=== PATIENT | female | born 1965 | race Caucasian/White ===

== ENCOUNTER 2020-02-27 09:28 | Inpatient (IN) | payer BC ==
[2020-02-27] MEDS ORDERED: Ondansetron 4 MG/2 ML SDV IVPUSH ONE (10:17)
[2020-02-27] MEDS ORDERED: Sodium Chloride 0.9% 1,000 ML IV ONE (10:17)
[2020-02-27] MEDS ORDERED: Morphine 2 MG/ML SYRINGE IVPUSH ONE (10:20)
[2020-02-27] MEDS ORDERED: Vancomycin 1.5 GM in Sodium Chloride 0.9% 500 ML IV STA (10:20)
[2020-02-27] MEDS ORDERED: Ampicillin/Sulbactam Na 3 GM in Sodium Chloride 0.9% 100 ML IV ONE (10:25)
--- NOTE | 2020-02-27 10:32 | EDM.PDOC ---
ED HPI GENERAL MEDICAL PROBLEM - General Chief Complaint: General Stated Complaint: BACTERIAL INFECTION Time Seen by Provider: 02/27/20 09:34 Source of Information: Reports: Patient History Limitations: Reports: No Limitations - History of Present Illness INITIAL COMMENTS - FREE TEXT/NARRATIVE: HISTORY AND PHYSICAL: History of present illness: Patient is a 54-year-old female who presents to the ED today with concern of skin infection of her right groin/perineal area x 8 days. Patient states that this week she went to the walk-in clinic and was given Bactrim and states that she has been taking this for 6 days and has not had improvement of her infection and has noticed it spreading despite the antibiotics at home. Patient states that she has also had nausea and has not been able to eat due to the nausea. Patient states she had a syncopal event 3 days ago in her bathroom and hit her left eye. Patient states that she has felt dizzy and lightheaded and believes it is from not eating enough food. Patient states that she has been taking the antibiotic as prescribed to her with worsening and not improving infection. Patient denies any health history. Patient states that she took Advil at about 6 this morning for pain without relief of symptoms. Patient states she is having a hard time sitting due to the pain and discomfort of her perineal region. Patient denies fever, chills, chest pain, shortness of breath, or cough. Denies headache, neck stiff ness, change in vision. Denies vomiting, abdominal pain, diarrhea, constipation, or dysuria. Has not noted any blood in urine or stool. Review of systems: As per history of present illness and below otherwise all systems reviewed and negative. Past medical history: As per history of present illness and as reviewed below otherwise noncontributory. Surgical history: As per history of present illness and as reviewed below otherwise noncontributory. Social history: See social history for further information Family history: As per history of present illness and as reviewed below otherwise noncontributory. Physical exam: General: Patient is alert, oriented, and in no acute distress. Patient laying comfortably on exam table. HEENT: Patient does have a healing laceration of her left eyebrow approximately 2cm with surrounding ecchymosis of the eye lid. No crepitus to palpation of the skull/orbit. No Atraumatic, normocephalic, pupils equal and reactive bilaterally, negative for conjunctival pallor or scleral icterus, mucous membranes moist, TMs normal bilaterally, throat clear, neck supple, nontender, trachea midline. No drooling or trismus noted. No meningeal signs. No hot potato voice noted. Lungs: Clear to auscultation, breath sounds equal bilaterally, chest nontender. Heart: S1S2, regular rate and rhythm without overt murmur Abdomen: Soft, nondistended, nontender. Negative for masses or hepatosplenomegaly. Negative for costovertebral tenderness. Pelvis: Stable nontender. Genitourinary: Rn Bariatric at bedside Zenia Salgado. There is an open/abraded area of the skin of the right labia majora with a large area of surrounding erythema/induration that extends along the entire labia majora and up into the right inguinal area. There is a small-moderate amount of bloody discharge on patients pad that she had covering this area. Moderate pain to palpation of this area. Rectal: Deferred. Skin: Intact, warm, dry. No lesions or rashes noted. Extremities: Atraumatic, negative for cords or calf pain. Neurovascular unremarkable. Neuro: Awake, alert, oriented. Cranial nerves II through XII unremarkable. Cerebellum unremarkable. Motor and sensory unremarkable throughout. Exam nonfocal. Notes: I did call and speak to Dr. Patel, and will admit to inpatient with consult to OBGYN, Dr. Preston. Voices understanding and is agreeable to plan of care. Denies any further questions or concerns at this time. Diagnostics: EKG, CBC, CMP, UA, Lactate, Blood cultures x 2, Trop, CXR, Head ct, abd/pelvic ct w cont, COVID19 Therapeutics: NS, Zofran, Morphine, Vancomycin, Unasyn, Potassium Impression: Right labia majora cellulitis, failed outpatient Hypokalemia Transaminitis Plan: Admit to inpatient to Dr. Patel, hospitalist, with consult to Dr. Preston OBKATHERINE Definitive disposition and diagnosis as appropriate pending reevaluation and review of above. Right buttock Pain Score (Numeric/FACES): 5 - Related Data Allergies Allergy/AdvReac Type Severity Reaction Status Date / Time No Known Allergies Allergy Verified 02/27/20 09:43 Home Meds: Home Meds Lisinopril 20 mg PO DAILY 30 Days #30 tablet 03/24/18 [Rx] Past Medical History - Infectious Disease History Infectious Disease History: Reports: Chicken Pox, Measles - Past Surgical History HEENT Surgical History: Reports: Adenoidectomy, Tonsillectomy Social & Family History - Family History Family Medical History: No Pertinent Family History - Tobacco Use Tobacco Use Status *Q: Never Tobacco User - Caffeine Use Caffeine Use: Reports: Coffee - Recreational Drug Use Recreational Drug Use: No ED ROS GENERAL - Review of Systems Review Of Systems: Comprehensive ROS is negative, except as noted in HPI. ED EXAM, GENERAL - Physical Exam Exam: See Below (see dictation) Course - Vital Signs Last Recorded V/S: Last Vital Signs Temp 98.6 F 02/27/20 16:00 Pulse 80 02/27/20 16:00 Resp 18 02/27/20 16:00 BP 138/66 02/27/20 16:00 Pulse Ox 95 02/27/20 16:00 - Orders/Labs/Meds Orders: Active Orders 24 hr Category Date Time Status EKG Documentation Completion [RC] STAT Care 02/27/20 10:18 Active CULTURE BLOOD [BC] Stat Lab 02/27/20 09:50 Received CULTURE BLOOD [BC] Stat Lab 02/27/20 10:35 Received Blood Culture x2 Reflex Set [OM.PC] Stat Oth 02/27/20 10:26 Ordered Medication Orders Acetaminophen (Tylenol) 650 mg PO Q4H PRN PRN Reason: Pain (Mild 1-3)/fever Enoxaparin Sodium (Lovenox) 40 mg SUBCUT Q24H AVIS Potassium Chloride (Klor-Con M20) 40 meq PO ONETIME ONE Stop: 02/27/20 16:04 Labs: Laboratory Tests 02/27/20 02/27/20 02/27/20 Range/Units 10:35 10:35 10:35 WBC 8.90 (4.0-11.0) K/uL RBC 4.11 L (4.30-5.90) M/uL Hgb 11.8 L (12.0-16.0) g/dL Hct 35.9 L (36.0-46.0) % MCV 87.3 (80.0-98.0) fL MCH 28.7 (27.0-32.0) pg MCHC 32.9 (31.0-37.0) g/dL RDW Std Deviation 44.6 (28.0-62.0) fl RDW Coeff of John 14 (11.0-15.0) % Plt Count 265 (150-400) K/uL MPV 9.50 (7.40-12.00) fL Add Manual Diff YES Neutrophils % (Manual) 60 (48.0-80.0) % Band Neutrophils % 9 % Lymphocytes % (Manual) 18 (16.0-40.0) % Monocytes % (Manual) 10 (0.0-15.0) % Basophils % (Manual) 1 (0.0-1.5) % Metamyelocytes % 1 % Myelocytes % 1 % Nucleated RBC % 0.0 /100WBC Absolute Seg Neuts 5.3 (1.4-5.7) Band Neutrophils # 0.8 Lymphocytes # (Manual) 1.6 (0.6-2.4) Monocytes # (Manual) 0.9 H (0.0-0.8) Basophils # (Manual) 0.1 (0.0-0.1) Absolute Metamyelocyte 0.1 Absolute Myelocytes 0.1 Nucleated RBCs # 0 K/uL Toxic Granulation MODERATE Lactate 0.9 (0.20-2.00) mmol/L Sodium 136 (136-145) mmol/L Potassium 3.0 L (3.5-5.1) mmol/L Chloride 99 (98-107) mmol/L Carbon Dioxide 27.6 (21.0-32.0) mmol/L BUN 11 (7.0-18.0) mg/dL Creatinine 1.1 H (0.6-1.0) mg/dL Est Cr Clr Drug Dosing 53.46 mL/min Estimated GFR (MDRD) 51.4 ml/min Glucose 98 (74-106) mg/dL Calcium 9.3 (8.5-10.1) mg/dL Total Bilirubin 0.5 (0.2-1.0) mg/dL AST 47 H (15-37) IU/L ALT 102 H (14-63) IU/L Alkaline Phosphatase 163 H (46-116) U/L Troponin I < 0.050 (0.000-0.056) ng/mL Total Protein 7.5 (6.4-8.2) g/dL Albumin 2.8 L (3.4-5.0) g/dL Globulin 4.7 H (2.6-4.0) g/dL Albumin/Globulin Ratio 0.6 L (0.9-1.6) Urine Color Urine Appearance Urine pH (5.0-8.0) Ur Specific [place] (1.001-1.035) Urine Protein (NEGATIVE) mg/dL Urine Glucose (UA) (NEGATIVE) mg/dL Urine Ketones (NEGATIVE) mg/dL Urine Occult Blood (NEGATIVE) Urine Nitrite (NEGATIVE) Urine Bilirubin (NEGATIVE) Urine Urobilinogen (<2.0) EU/dL Ur Leukocyte Esterase (NEGATIVE) SARS-CoV-2 RNA (BENI) (NEGATIVE) 02/27/20 02/27/20 Range/Units 12:42 12:47 WBC (4.0-11.0) K/uL RBC (4.30-5.90) M/uL Hgb (12.0-16.0) g/dL Hct (36.0-46.0) % MCV (80.0-98.0) fL MCH (27.0-32.0) pg MCHC (31.0-37.0) g/dL RDW Std Deviation (28.0-62.0) fl RDW Coeff of John (11.0-15.0) % Plt Count (150-400) K/uL MPV (7.40-12.00) fL Add Manual Diff Neutrophils % (Manual) (48.0-80.0) % Band Neutrophils % % Lymphocytes % (Manual) (16.0-40.0) % Monocytes % (Manual) (0.0-15.0) % Basophils % (Manual) (0.0-1.5) % Metamyelocytes % % Myelocytes % % Nucleated RBC % /100WBC Absolute Seg Neuts (1.4-5.7) Band Neutrophils # Lymphocytes # (Manual) (0.6-2.4) Monocytes # (Manual) (0.0-0.8) Basophils # (Manual) (0.0-0.1) Absolute Metamyelocyte Absolute Myelocytes Nucleated RBCs # K/uL Toxic Granulation Lactate (0.20-2.00) mmol/L Sodium (136-145) mmol/L Potassium (3.5-5.1) mmol/L Chloride (98-107) mmol/L Carbon Dioxide (21.0-32.0) mmol/L BUN (7.0-18.0) mg/dL Creatinine (0.6-1.0) mg/dL Est Cr Clr Drug Dosing mL/min Estimated GFR (MDRD) ml/min Glucose (74-106) mg/dL Calcium (8.5-10.1) mg/dL Total Bilirubin (0.2-1.0) mg/dL AST (15-37) IU/L ALT (14-63) IU/L Alkaline Phosphatase (46-116) U/L Troponin I (0.000-0.056) ng/mL Total Protein (6.4-8.2) g/dL Albumin (3.4-5.0) g/dL Globulin (2.6-4.0) g/dL Albumin/Globulin Ratio (0.9-1.6) Urine Color YELLOW Urine Appearance CLEAR Urine pH 6.5 (5.0-8.0) Ur Specific [place] <= 1.005 (1.001-1.035) Urine Protein NEGATIVE (NEGATIVE) mg/dL Urine Glucose (UA) NEGATIVE (NEGATIVE) mg/dL Urine Ketones NEGATIVE (NEGATIVE) mg/dL Urine Occult Blood NEGATIVE (NEGATIVE) Urine Nitrite NEGATIVE (NEGATIVE) Urine Bilirubin NEGATIVE (NEGATIVE) Urine Urobilinogen 0.2 (<2.0) EU/dL Ur Leukocyte Esterase NEGATIVE (NEGATIVE) SARS-CoV-2 RNA (BENI) NEGATIVE (NEGATIVE) Meds: Medications Generic Name Dose Route Start Last Admin Trade Name Freq PRN Reason Stop Dose Admin Acetaminophen 650 mg 02/27/20 15:59 Tylenol PO Q4H PRN Pain (Mild 1-3)/fever Enoxaparin Sodium 40 mg 02/27/20 16:00 Lovenox SUBCUT Q24H AVIS Potassium Chloride 40 meq 02/27/20 16:03 Klor-Con M20 PO 02/27/20 16:04 ONETIME ONE Discontinued Medications Generic Name Dose Route Start Last Admin Trade Name Freq PRN Reason Stop Dose Admin Sodium Chloride 1,000 mls @ 999 mls/hr 02/27/20 10:17 02/27/20 10:43 Normal Saline IV 02/27/20 11:17 999 mls/hr BOLUS ONE Administration Vancomycin HCl 1.25 gm/ Sodium 250 mls @ 167 mls/hr 02/27/20 10:19 02/27/20 10:42 Chloride IV 02/27/20 11:48 Not Given ONETIME ONE Vancomycin HCl 1.5 gm/ Sodium 500 mls @ 333 mls/hr 02/27/20 10:20 02/27/20 10:42 Chloride IV 02/27/20 11:50 Not Given NOW STA Ampicillin Sodium/Sulbactam 100 mls @ 200 mls/hr 02/27/20 10:25 02/27/20 11:28 Sodium 3 gm/ Sodium Chloride IV 02/27/20 10:54 200 mls/hr ONETIME ONE Administration Vancomycin HCl 1.5 gm/ Premix 300 mls @ 199.815 mls/hr 02/27/20 10:29 02/27/20 10:45 IV 02/27/20 11:59 199.815 mls/hr NOW STA Administration Iopamidol 100 ml 02/27/20 12:21 02/27/20 12:22 Isovue Multipack-370 (76%) IVPUSH 02/27/20 12:22 100 ml ONETIME ONE Administration Morphine Sulfate 2 mg 02/27/20 10:20 02/27/20 10:45 Morphine IVPUSH 02/27/20 10:21 2 mg ONETIME ONE Administration Ondansetron HCl 4 mg 02/27/20 10:17 02/27/20 10:45 Zofran IVPUSH 02/27/20 10:18 4 mg ONETIME ONE Administration Potassium Chloride 20 meq 02/27/20 11:35 02/27/20 12:51 Klor-Con M20 PO 02/27/20 11:36 20 meq ONETIME ONE Administration Departure - Departure Time of Disposition: 13:57 Disposition: Admitted As Inpatient 64 Clinical Impression: Cellulitis of labia majora, Failure of outpatient treatment, Hypokalemia, Transaminitis - Discharge Information Sepsis Event Note (ED) - Evaluation Sepsis Screening Result: No Definite Risk - Focused Exam Vital Signs: Vital Signs Temp Pulse Resp BP Pulse Ox 02/27/20 13:43 77 128/66 93 L 02/27/20 12:43 86 146/73 H 93 L 02/27/20 11:13 73 142/68 H 95 02/27/20 09:43 97.1 F 85 16 152/83 H 96 - My Orders Last 24 Hours: My Active Orders 02/27/20 09:50 CULTURE BLOOD [BC] Stat 02/27/20 10:18 EKG Documentation Completion [RC] STAT 02/27/20 10:26 Blood Culture x2 Reflex Set [OM.PC] Stat 02/27/20 10:35 CULTURE BLOOD [BC] Stat - Assessment/Plan Last 24 Hours: My Active Orders 02/27/20 09:50 CULTURE BLOOD [BC] Stat 02/27/20 10:18 EKG Documentation Completion [RC] STAT 02/27/20 10:26 Blood Culture x2 Reflex Set [OM.PC] Stat 02/27/20 10:35 CULTURE BLOOD [BC] Stat
--- NOTE | 2020-02-27 10:38 | PCM.SN.2 ---
- Free Text/Narrative Note: 12-Lead ECG Interpretation Acquired: 10:33 AM Rhythm: Sinus rhythm Rate: 76 bpm [place]: Normal Intervals: Normal Ectopy: None RV Strain: No obvious RV strain pattern. ST Segments/T-Waves: T wave inversions in lead III, seen previously. Acute Ischemic Changes: None apparent Interpretation: No STEMI Compared to 03/24/2018, no significant change.
--- NOTE | 2020-02-27 11:21 | CR ---
INDICATION: Syncope TECHNIQUE: Chest 1 views COMPARISON: March 24, 2018 FINDINGS: Cardiovascular and mediastinum: Heart size and vasculature are normal in caliber and appearance. Lungs and pleural spaces: Lungs are clear. No sign of infiltrate or mass. No sign of pleural effusion. No pneumothorax. Bones and soft tissues: No significant findings. IMPRESSION: No acute findings and no significant changes from the prior exam. Dictated by Ike Johnson MD @ Feb 27 2020 11:17AM Signed by Dr. Ike Johnson @ Feb 27 2020 11:19AM
[2020-02-27 11:24] LABS: BLOOD UREA NITROGEN,BUN 11 mg/dL (7.0-18.0); CARBON DIOXIDE,CO2 27.6 mmol/L (21.0-32.0); CHLORIDE,CL 99 mmol/L (98-107); GLUCOSE RANDOM 98 mg/dL (74-106); SODIUM,NA 136 mmol/L (136-145)
[2020-02-27] MEDS ORDERED: Potassium Chloride 20 MEQ Tab.ER PO ONE ×2 (11:35→16:03)
[2020-02-27] MEDS ORDERED: Iopamidol 755 MG/ML 500 ML Multipack Bottle IVPUSH ONE (12:21)
--- NOTE | 2020-02-27 12:42 | CT ---
INDICATION: Syncope COMPARISON: None TECHNIQUE: CT examination of the head was performed as axial sections without intravenous contrast. Images were obtained from the vertex of the skull through the skull base. Please note that all CT scans at this facility use dose modulation, iterative reconstruction, and/or weight-based dosing when appropriate to reduce radiation dose to as low as reasonably achievable. FINDINGS: The brain shows no sign of mass lesion, mass effect, hemorrhage, or edema. The ventricles and sulci are normal in appearance for the patient`s age. The visualized portions of the orbits are normal in appearance. The osseous structures are normal in their appearance with no sign of abnormality in the skull base or calvarium. IMPRESSION: Normal unenhanced head CT. Please note that all CT scans at this facility use dose modulation, iterative reconstruction, and/or weight-based dosing when appropriate to reduce radiation dose to as low as reasonably achievable. Dictated by Neel Shrestha MD @ Feb 27 2020 12:38PM Signed by Dr. Neel Shrestha @ Feb 27 2020 12:41PM
--- NOTE | 2020-02-27 12:57 | CT ---
Indication: Perineal cellulitis versus abscess Technique: Volumetric multidetector CT images of the abdomen and pelvis were obtained after the administration of intravenous contrast. 100 cc Isovue 370 Comparison: None available. Findings: There is basilar atelectasis and/or parenchymal scarring with minimal traction bronchiectasis. The liver is mildly prominence with hepatic steatosis. The portal vein is patent. The spleen is mildly prominent without ranjana splenomegaly. There are calcified gallstones seen within the dependent gallbladder without evidence of pericholecystic fluid. There is no significant intrahepatic biliary ductal dilatation. The spleen is normal in enhancement and size. The stomach and duodenum are grossly unremarkable. The pancreas is normal in enhancement without significant atrophy. The adrenal glands are unremarkable. The kidneys demonstrate preserved corticomedullary differentiation without evidence of obstructive uropathy. There is a mild amount of stool seen throughout the colon. There is mild distal colonic diverticulosis. The appendix is unremarkable. There is no significant mesenteric, retroperitoneal, or pelvic sidewall lymph nodes. The aorta is nonaneurysmal. There is no significant atherosclerotic disease appreciated. There is demonstration of moderate and superficial soft tissue edema involving the right labia majora with extension to the perineum along the right lower quadrant abdominal superficial soft tissues. There are reactive, hyperemic lymph nodes seen in the right inguinal space and right pelvic sidewall. There is no definite extension of fluid or inflammatory changes above the pelvic floor. There is a moderate amount of non rim enhancing fluid seen throughout. There is no free fluid or free air. There is a small fat containing umbilical hernia otherwise anterior abdominal wall is intact. The lumbar vertebral body heights are grossly maintained in satisfactory alignment without evidence of displaced fracture, lytic or blastic lesion. Impression: Demonstration of fluid and inflammatory changes centered within the right labia majora and superficial subcutaneous soft tissues tracking along the right lower quadrant superficial groin soft tissues and right inguinal canal which may represent cellulitis with early abscess formation. There is no significant rim enhancement. There is no extension into the perirectal space or abdominal compartment. Please note that all CT scans at this facility use dose modulation, iterative reconstruction, and/or weight-based dosing when appropriate to reduce radiation dose to as low as reasonably achievable. Dictated by Cedric Baird MD @ Feb 27 2020 12:39PM Signed by Dr. Cedric Baird @ Feb 27 2020 12:55PM
[2020-02-27] MEDS ORDERED: Acetaminophen 325 MG Tab PO PRN (15:59)
[2020-02-27] MEDS: Enoxaparin 40 MG/0.4 ML Syringe SUBCUT SCH (16:52)
[2020-02-27] MEDS: Piperacillin/Tazobactam 3.375 GM in Sodium Chloride 0.9% 100 ML IV SCH ×2 (16:53→21:56)
[2020-02-27] MEDS ORDERED: Ondansetron 4 MG/2 ML SDV IVPUSH PRN (16:54)
--- NOTE | 2020-02-27 17:09 | PCM.HP.2 ---
<MaryRodolfo covington - Last Filed: 02/27/20 17:23> H&P History of Present Illness - General Date of Service: 02/27/20 Admit Problem/Dx: Admission Diagnosis/Problem Admission Diagnosis/Problem Cellulitis - History of Present Illness Initial Comments - Free Text/Narative: 54-year-old female admitted for cellulitis of the right pubic area, right labia majora, right perianal area. Patient states she is having a hard time sitting and walking due to her pain. Patient states that her symptoms began roughly one week prior at which time she went to a walk-in clinic for treatment. Patient was prescribed Bactrim which she has take for 6 days with no improvement of her infection. Patient has also had nausea, vomiting, headaches and fatigue for the past week. Patient has also had very poor appetite and states that she hasn't had much to eat over the past week, leading to episodes of dizziness and lightheadedness. Patient does not have any known PMH or medication allergies. Right buttock Pain Score (Numeric/FACES): 5 - Related Data Allergies/Adverse Reactions: Allergies Allergy/AdvReac Type Severity Reaction Status Date / Time No Known Allergies Allergy Verified 02/27/20 16:23 Home Medications: Home Meds Aspirin 81 mg PO DAILY 02/27/20 [History] Sulfamethoxazole/Trimethoprim [Bactrim Ds Tablet] 1 each PO BID 02/27/20 [History] Past Medical History Neurological History: Reports: Vertigo Other Neuro History: syncope Dermatologic History: Reports: Cellulitis, Other (See Below) Other Dermatologic History: cellulitis right groin and kalin and rectal area - Infectious Disease History Infectious Disease History: Reports: Chicken Pox, Measles - Past Surgical History HEENT Surgical History: Reports: Adenoidectomy, Tonsillectomy Social & Family History - Family History Family Medical History: No Pertinent Family History - Tobacco Use Tobacco Use Status *Q: Never Tobacco User Second Hand Smoke Exposure: Yes - Caffeine Use Caffeine Use: Reports: Coffee - Recreational Drug Use Recreational Drug Use: No H&P Review of Systems - Review of Systems: Review Of Systems: See Below General: Reports: Weakness, Fatigue, Decreased Appetite. Denies: Fever, Chills Pulmonary: Denies: Shortness of Breath, Wheezing Cardiovascular: Denies: Chest Pain, Palpitations, Dyspnea on Exertion Gastrointestinal: Reports: Decreased Appetite, Nausea, Vomiting. Denies: Abdominal Pain Genitourinary: Denies: Dysuria, Burning Skin: Reports: Erythema (right groin area) Neurological: Reports: Headache. Denies: Confusion, Dizziness Exam - Exam Exam: See Below - Vital Signs Vital Signs: Last Vital Signs Temp 98.6 F 02/27/20 16:00 Pulse 80 02/27/20 16:00 Resp 18 02/27/20 16:00 BP 138/66 02/27/20 16:00 Pulse Ox 95 02/27/20 16:00 Weight: 80.921 kg - Exam General: Alert, Oriented Neck: Supple Lungs: Clear to Auscultation, Normal Respiratory Effort Cardiovascular: Regular Rate, Regular Rhythm GI/Abdominal Exam: Normal Bowel Sounds, Soft, Non-Tender (Female) Exam: Other (swelling, erythema, tender and warm to touch on palpation at right labia majora and right suprapubic areas) Rectal (Female) Exam: Perirectal Abscess - Patient Data Lab Results Last 24 hrs: Laboratory Results - last 24 hr 02/27/20 02/27/20 02/27/20 Range/Units 10:35 10:35 10:35 WBC 8.90 (4.0-11.0) K/uL RBC 4.11 L (4.30-5.90) M/uL Hgb 11.8 L (12.0-16.0) g/dL Hct 35.9 L (36.0-46.0) % MCV 87.3 (80.0-98.0) fL MCH 28.7 (27.0-32.0) pg MCHC 32.9 (31.0-37.0) g/dL RDW Std Deviation 44.6 (28.0-62.0) fl RDW Coeff of John 14 (11.0-15.0) % Plt Count 265 (150-400) K/uL MPV 9.50 (7.40-12.00) fL Add Manual Diff YES Neutrophils % (Manual) 60 (48.0-80.0) % Band Neutrophils % 9 % Lymphocytes % (Manual) 18 (16.0-40.0) % Monocytes % (Manual) 10 (0.0-15.0) % Basophils % (Manual) 1 (0.0-1.5) % Metamyelocytes % 1 % Myelocytes % 1 % Nucleated RBC % 0.0 /100WBC Absolute Seg Neuts 5.3 (1.4-5.7) Band Neutrophils # 0.8 Lymphocytes # (Manual) 1.6 (0.6-2.4) Monocytes # (Manual) 0.9 H (0.0-0.8) Basophils # (Manual) 0.1 (0.0-0.1) Absolute Metamyelocyte 0.1 Absolute Myelocytes 0.1 Nucleated RBCs # 0 K/uL Toxic Granulation MODERATE Lactate 0.9 (0.20-2.00) mmol/L Sodium 136 (136-145) mmol/L Potassium 3.0 L (3.5-5.1) mmol/L Chloride 99 (98-107) mmol/L Carbon Dioxide 27.6 (21.0-32.0) mmol/L BUN 11 (7.0-18.0) mg/dL Creatinine 1.1 H (0.6-1.0) mg/dL Est Cr Clr Drug Dosing 53.46 mL/min Estimated GFR (MDRD) 51.4 ml/min Glucose 98 (74-106) mg/dL Calcium 9.3 (8.5-10.1) mg/dL Total Bilirubin 0.5 (0.2-1.0) mg/dL AST 47 H (15-37) IU/L ALT 102 H (14-63) IU/L Alkaline Phosphatase 163 H (46-116) U/L Troponin I < 0.050 (0.000-0.056) ng/mL Total Protein 7.5 (6.4-8.2) g/dL Albumin 2.8 L (3.4-5.0) g/dL Globulin 4.7 H (2.6-4.0) g/dL Albumin/Globulin Ratio 0.6 L (0.9-1.6) Urine Color Urine Appearance Urine pH (5.0-8.0) Ur Specific A[place]worth (1.001-1.035) Urine Protein (NEGATIVE) mg/dL Urine Glucose (UA) (NEGATIVE) mg/dL Urine Ketones (NEGATIVE) mg/dL Urine Occult Blood (NEGATIVE) Urine Nitrite (NEGATIVE) Urine Bilirubin (NEGATIVE) Urine Urobilinogen (<2.0) EU/dL Ur Leukocyte Esterase (NEGATIVE) SARS-CoV-2 RNA (BENI) (NEGATIVE) 02/27/20 02/27/20 Range/Units 12:42 12:47 WBC (4.0-11.0) K/uL RBC (4.30-5.90) M/uL Hgb (12.0-16.0) g/dL Hct (36.0-46.0) % MCV (80.0-98.0) fL MCH (27.0-32.0) pg MCHC (31.0-37.0) g/dL RDW Std Deviation (28.0-62.0) fl RDW Coeff of John (11.0-15.0) % Plt Count (150-400) K/uL MPV (7.40-12.00) fL Add Manual Diff Neutrophils % (Manual) (48.0-80.0) % Band Neutrophils % % Lymphocytes % (Manual) (16.0-40.0) % Monocytes % (Manual) (0.0-15.0) % Basophils % (Manual) (0.0-1.5) % Metamyelocytes % % Myelocytes % % Nucleated RBC % /100WBC Absolute Seg Neuts (1.4-5.7) Band Neutrophils # Lymphocytes # (Manual) (0.6-2.4) Monocytes # (Manual) (0.0-0.8) Basophils # (Manual) (0.0-0.1) Absolute Metamyelocyte Absolute Myelocytes Nucleated RBCs # K/uL Toxic Granulation Lactate (0.20-2.00) mmol/L Sodium (136-145) mmol/L Potassium (3.5-5.1) mmol/L Chloride (98-107) mmol/L Carbon Dioxide (21.0-32.0) mmol/L BUN (7.0-18.0) mg/dL Creatinine (0.6-1.0) mg/dL Est Cr Clr Drug Dosing mL/min Estimated GFR (MDRD) ml/min Glucose (74-106) mg/dL Calcium (8.5-10.1) mg/dL Total Bilirubin (0.2-1.0) mg/dL AST (15-37) IU/L ALT (14-63) IU/L Alkaline Phosphatase (46-116) U/L Troponin I (0.000-0.056) ng/mL Total Protein (6.4-8.2) g/dL Albumin (3.4-5.0) g/dL Globulin (2.6-4.0) g/dL Albumin/Globulin Ratio (0.9-1.6) Urine Color YELLOW Urine Appearance CLEAR Urine pH 6.5 (5.0-8.0) Ur Specific A[place]worth <= 1.005 (1.001-1.035) Urine Protein NEGATIVE (NEGATIVE) mg/dL Urine Glucose (UA) NEGATIVE (NEGATIVE) mg/dL Urine Ketones NEGATIVE (NEGATIVE) mg/dL Urine Occult Blood NEGATIVE (NEGATIVE) Urine Nitrite NEGATIVE (NEGATIVE) Urine Bilirubin NEGATIVE (NEGATIVE) Urine Urobilinogen 0.2 (<2.0) EU/dL Ur Leukocyte Esterase NEGATIVE (NEGATIVE) SARS-CoV-2 RNA (BENI) NEGATIVE (NEGATIVE) Result Diagrams: 02/27/20 10:35 02/27/20 10:35 Sepsis Event Note - Evaluation Sepsis Screening Result: No Definite Risk - Focused Exam Vital Signs: Vital Signs Temp Pulse Resp BP BP Pulse Ox 02/27/20 16:00 98.6 F 80 18 138/66 95 02/27/20 15:13 76 119/54 L 93 L 02/27/20 14:43 76 120/50 L 94 L 02/27/20 13:43 77 128/66 93 L 02/27/20 12:43 86 146/73 H 93 L 02/27/20 11:13 73 142/68 H 95 02/27/20 09:43 97.1 F 85 16 152/83 H 96 Problem List Initiated/Reviewed/Updated: Yes Orders Last 24hrs: Active Orders 24 hr Category Date Time Status Admission Status [Patient Status] [ADT] Stat ADT 02/27/20 13:47 Active EKG Documentation Completion [RC] STAT Care 02/27/20 10:18 Active Notify Provider Consults [RC] ASDIRECTED Care 02/27/20 13:56 Active Oxygen Therapy [RC] PRN Care 02/27/20 15:59 Active VTE/DVT Education [RC] PER UNIT ROUTINE Care 02/27/20 15:59 Active Vital Signs [RC] Q4H Care 02/27/20 15:59 Active Consult to Physician [CONS] Stat Cons 02/27/20 13:56 Active Soft Diet [DIET] Diet 02/27/20 Dinner Ordered Abdomen Ltd [US] Routine Exams 02/27/20 16:57 Ordered CBC WITH AUTO DIFF [HEME] AM Lab 02/28/20 05:11 Ordered CMP [COMPREHENSIVE METABOLIC PN,CMP] [CHEM] AM Lab 02/28/20 05:11 Ordered CULTURE BLOOD [BC] Stat Lab 02/27/20 09:50 Received CULTURE BLOOD [BC] Stat Lab 02/27/20 10:35 Received VANCOMYCIN TROUGH [CHEM] Routine Lab 02/29/20 10:00 Ordered Acetaminophen [TylenoL] Med 02/27/20 15:59 Active 650 mg PO Q4H PRN Enoxaparin [Lovenox] Med 02/27/20 16:00 Active 40 mg SUBCUT Q24H Lactated Ringers @ 125 MLS/HR(1,000ml) Med 02/27/20 17:00 Ordered Lactated Ringers [Ringers, Lactated] 1,000 ml IV ASDIRECTED Ondansetron [Zofran] Med 02/27/20 16:54 Ordered 4 mg IVPUSH Q8H PRN Piperacillin/Tazobactam [Piperacil-Tazobact] 3.375 gm Med 02/27/20 16:15 Active Sodium Chloride 0.9% [Normal Saline] 100 ml IV Q6H Vancomycin [Vancocin] 1 gm Med 02/27/20 23:00 Active Sodium Chloride 0.9% [Normal Saline (AdvBag)] 250 ml IV Q12H Blood Culture x2 Reflex Set [OM.PC] Stat Oth 02/27/20 10:26 Ordered Medication Orders Acetaminophen (Tylenol) 650 mg PO Q4H PRN PRN Reason: Pain (Mild 1-3)/fever Enoxaparin Sodium (Lovenox) 40 mg SUBCUT Q24H [facility] Last Admin: 02/27/20 16:52 Dose: 40 mg Documented by: DALE Piperacillin Sod/Tazobactam (Sod 3.375 gm/ Sodium Chloride) 100 mls @ 200 mls/hr IV Q6H [facility] Last Admin: 02/27/20 16:53 Dose: 200 mls/hr Documented by: DALE Vancomycin HCl 1 gm/ Sodium (Chloride) 250 mls @ 250 mls/hr IV Q12H [facility] Lactated Ringer's (Ringers, Lactated) 1,000 mls @ 125 mls/hr IV ASDIRECTED [facility] Ondansetron HCl (Zofran) 4 mg IVPUSH Q8H PRN PRN Reason: Nausea/Vomiting Assessment/Plan Comment:: Cellulitis of right groin, right perianal area, right labia majora- Vancomycin Q12, Zosyn 3gm Q6, Blood cultures pending, LR 125/HR, Zofran 4mg PRN for Nausea/Vomiting, Lovenox 40mg daily, Morphine 2mg PRN Q4 HR, [employer]ENT consult Hypokalemia- 40meq PO. Recheck AM BMP Transaminitis- US RUQ (ALT 102, AST 47, Alk Phos 163, Cholelithiasis) <Elan Adam - Last Filed: 03/01/20 12:34> H&P History of Present Illness - General Admit Problem/Dx: Admission Diagnosis/Problem Admission Diagnosis/Problem Cellulitis Exam - Vital Signs Vital Signs: Last Vital Signs Temp 36.7 C 03/01/20 09:00 Pulse 80 03/01/20 09:00 Resp 16 03/01/20 09:00 BP 134/67 03/01/20 09:00 Pulse Ox 97 03/01/20 09:00 - Patient Data Lab Results Last 24 hrs: Laboratory Results - last 24 hr 03/01/20 03/01/20 Range/Units 05:07 05:07 WBC 6.67 (4.0-11.0) K/uL RBC 3.58 L (4.30-5.90) M/uL Hgb 10.1 L (12.0-16.0) g/dL Hct 32.1 L (36.0-46.0) % MCV 89.7 (80.0-98.0) fL MCH 28.2 (27.0-32.0) pg MCHC 31.5 (31.0-37.0) g/dL RDW Std Deviation 46.7 (28.0-62.0) fl RDW Coeff of John 14 (11.0-15.0) % Plt Count 246 (150-400) K/uL MPV 9.10 (7.40-12.00) fL Add Manual Diff YES Neutrophils % (Manual) 70 (48.0-80.0) % Band Neutrophils % 12 % Lymphocytes % (Manual) 17 (16.0-40.0) % Monocytes % (Manual) 1 (0.0-15.0) % Nucleated RBC % 0.0 /100WBC Absolute Seg Neuts 4.7 (1.4-5.7) Band Neutrophils # 0.8 Lymphocytes # (Manual) 1.1 (0.6-2.4) Monocytes # (Manual) 0.1 (0.0-0.8) Nucleated RBCs # 0 K/uL Sodium 142 (136-145) mmol/L Potassium 3.4 L (3.5-5.1) mmol/L Chloride 106 (98-107) mmol/L Carbon Dioxide 26.3 (21.0-32.0) mmol/L BUN 6 L (7.0-18.0) mg/dL Creatinine 0.9 (0.6-1.0) mg/dL Est Cr Clr Drug Dosing 65.34 mL/min Estimated GFR (MDRD) > 60.0 ml/min Glucose 92 (74-106) mg/dL Calcium 8.3 L (8.5-10.1) mg/dL Result Diagrams: 03/01/20 05:07 03/01/20 05:07 Antonio Results Last 24 hrs: Microbiology 02/27/20 09:50 Aerobic Blood Culture - Preliminary Blood - Venous - Lab Draw NO GROWTH AFTER 3 DAYS Anaerobic Blood Culture - Preliminary NO GROWTH AFTER 3 DAYS 02/27/20 10:35 Aerobic Blood Culture - Preliminary Blood - Venous NO GROWTH AFTER 3 DAYS Anaerobic Blood Culture - Preliminary NO GROWTH AFTER 3 DAYS 02/29/20 16:27 Gram Stain - Final Labia - Right Wound Culture - Preliminary 02/28/20 15:10 Wound Culture - Final Labia - Right (Mrsa) Staphylococcus Aureus Skin Bette Sepsis Event Note - Focused Exam Vital Signs: Vital Signs Temp Pulse Resp BP Pulse Ox 03/01/20 09:00 36.7 C 80 16 134/67 97 03/01/20 03:55 36.8 C 68 17 161/75 H 93 L Orders Last 24hrs: Active Orders 24 hr Category Date Time Status Patient Status [ADT] Routine ADT 02/29/20 16:38 Active Regular Diet [DIET] Diet 03/01/20 Breakfast Active ANAEROBIC CULTURE Routine Lab 02/29/20 16:27 Received CULTURE WOUND [RM] Routine Lab 02/29/20 16:27 Results GRAM STAIN [RM] Routine Lab 02/29/20 16:27 Results VANCOMYCIN TROUGH [CHEM] Routine Lab 03/02/20 10:30 Ordered Potassium Chloride Med 03/01/20 09:00 Active 20 meq PO BID Resuscitation Status Routine Resus Stat 02/29/20 16:38 Ordered Medication Orders Acetaminophen (Tylenol) 650 mg PO Q4H PRN PRN Reason: Pain Last Admin: 03/01/20 04:42 Dose: 650 mg Documented by: Admin: 02/28/20 20:25 Dose: 650 mg Documented by: Admin: 02/28/20 10:35 Dose: 650 mg Documented by: FABRICIO Cosigned by: MARY Docusate Sodium (Colace) 200 mg PO DAILY [facility] Last Admin: 03/01/20 08:45 Dose: 200 mg Documented by: Admin: 02/29/20 08:41 Dose: 200 mg Documented by: Admin: 02/28/20 10:37 Dose: 200 mg Documented by: FABRICIO Cosigned by: MARY Enoxaparin Sodium (Lovenox) 40 mg SUBCUT Q24H [facility] Last Admin: 02/29/20 15:19 Dose: Not Given Documented by: Admin: 02/28/20 15:40 Dose: 40 mg Documented by: Admin: 02/27/20 16:52 Dose: 40 mg Documented by: DALE Piperacillin Sod/Tazobactam (Sod 3.375 gm/ Sodium Chloride) 100 mls @ 200 mls/hr IV Q6H [facility] Last Admin: 03/01/20 10:30 Dose: 200 mls/hr Documented by: Infusion: 03/01/20 05:14 Dose: 200 mls/hr Documented by: Admin: 03/01/20 04:44 Dose: 200 mls/hr Documented by: Infusion: 02/29/20 22:45 Dose: 200 mls/hr Documented by: Admin: 02/29/20 22:15 Dose: 200 mls/hr Documented by: Infusion: 02/29/20 15:49 Dose: 200 mls/hr Documented by: Admin: 02/29/20 15:19 Dose: 200 mls/hr Documented by: Infusion: 02/29/20 10:56 Dose: 200 mls/hr Documented by: Admin: 02/29/20 10:26 Dose: 200 mls/hr Documented by: Infusion: 02/29/20 03:50 Dose: 200 mls/hr Documented by: Admin: 02/29/20 03:20 Dose: 200 mls/hr Documented by: Infusion: 02/28/20 22:50 Dose: 200 mls/hr Documented by: Admin: 02/28/20 22:20 Dose: 200 mls/hr Documented by: Infusion: 02/28/20 16:10 Dose: 200 mls/hr Documented by: Admin: 02/28/20 15:40 Dose: 200 mls/hr Documented by: Infusion: 02/28/20 10:33 Dose: 200 mls/hr Documented by: Admin: 02/28/20 10:03 Dose: 200 mls/hr Documented by: Infusion: 02/28/20 04:11 Dose: 200 mls/hr Documented by: Admin: 02/28/20 03:41 Dose: 200 mls/hr Documented by: Infusion: 02/27/20 22:26 Dose: 200 mls/hr Documented by: Admin: 02/27/20 21:56 Dose: 200 mls/hr Documented by: Infusion: 02/27/20 17:23 Dose: 200 mls/hr Documented by: Admin: 02/27/20 16:53 Dose: 200 mls/hr Documented by: DALE Vancomycin HCl 1.25 gm/ Sodium (Chloride) 250 mls @ 250 mls/hr IV Q12H [facility] Last Admin: 03/01/20 11:11 Dose: 250 mls/hr Documented by: HORTENCIAPRSergio Infusion: 03/01/20 00:30 Dose: 250 mls/hr Documented by: [email or web address] Admin: 02/29/20 23:30 Dose: 250 mls/hr Documented by: Infusion: 02/29/20 12:19 Dose: 250 mls/hr Documented by: Admin: 02/29/20 11:19 Dose: 250 mls/hr Documented by: ÁNGEL Morphine Sulfate (Morphine) 2 mg IVPUSH Q4H PRN PRN Reason: Pain Last Admin: 02/27/20 22:04 Dose: 2 mg Documented by: BUCK Ondansetron HCl (Zofran) 4 mg IVPUSH Q8H PRN PRN Reason: Nausea/Vomiting Last Admin: 02/27/20 17:27 Dose: 4 mg Documented by: DALE Potassium Chloride (Potassium Chloride) 20 meq PO BID [facility] Last Admin: 03/01/20 08:44 Dose: 20 meq Documented by: EVITA Assessment/Plan Comment:: I performed a history and physical exam of the patient and discussed management with resident. I have reviewed the residents note and agree with documented findings and plan unless otherwise specified in my note.
[2020-02-27] MEDS ORDERED: Morphine 2 MG/ML SYRINGE IVPUSH PRN (17:18)
[2020-02-27] MEDS: Lactated Ringers 1,000 ML IV SCH (17:59)
[2020-02-27 23:15] LABS: HEMOGLOBIN A1C 5.5 %
[2020-02-28] MEDS: Lactated Ringers 1,000 ML IV SCH ×2 (03:41→16:33)
[2020-02-28] MEDS: Piperacillin/Tazobactam 3.375 GM in Sodium Chloride 0.9% 100 ML IV SCH ×4 (03:41→22:20)
[2020-02-28 05:59] LABS: BLOOD UREA NITROGEN,BUN 8 mg/dL (7.0-18.0); CARBON DIOXIDE,CO2 25.1 mmol/L (21.0-32.0); CHLORIDE,CL 106 mmol/L (98-107); GLUCOSE RANDOM 100 mg/dL (74-106); POTASSIUM,K 3.7 mmol/L (3.5-5.1); SODIUM,NA 139 mmol/L (136-145)
--- NOTE | 2020-02-28 08:52 | US ---
INDICATION: Cholelithiasis. TECHNIQUE: Ultrasound abdomen limited. Sonographic images of the right upper quadrant were obtained using yung-scale and color Doppler images. COMPARISON: CT abdomen pelvis February 27, 2020. FINDINGS: Liver: Normal in size and echotexture. No masses. No intrahepatic biliary dilatation. Gallbladder: Multiple gallbladder stones are present. No sign of gallbladder wall thickening or pericholecystic fluid. Common bile duct: 3 mm. Pancreas: Unremarkable. Right kidney: Normal in size. Normal echotexture and cortex. No masses, stones, or hydronephrosis. Vasculature: Proximal abdominal aorta and IVC are normal. IMPRESSION: Cholelithiasis without further evidence of cholecystitis. The remainder of the exam is unremarkable. Dictated by Ike Johnson MD @ Feb 28 2020 8:47AM Signed by Dr. Ike Johnson @ Feb 28 2020 8:49AM
[2020-02-28] MEDS: Acetaminophen 325 MG Tab PO PRN ×2 (10:35→20:25)
[2020-02-28] MEDS: Docusate Sodium 100 MG Cap PO SCH (10:37)
[2020-02-28] MEDS: Enoxaparin 40 MG/0.4 ML Syringe SUBCUT SCH (15:40)
--- NOTE | 2020-02-28 19:32 | PCM.PN ---
<Rodolfo Zabala - Last Filed: 02/28/20 19:27> - General Info Date of Service: 02/28/20 Admission Dx/Problem (Free Text): Patient states that she feels the same as the previous day. She has pain with movement in her groin area. Still has decreased appetitive but states nausea is well controlled with zofran. Denies fever, chills, vomiting, SOB. - Review of Systems General: Reports: Weakness. Denies: Fever, Chills Pulmonary: Denies: Shortness of Breath, Pleuritic Chest Pain, Cough Cardiovascular: Denies: Chest Pain, Palpitations, Dyspnea on Exertion Gastrointestinal: Reports: Decreased Appetite. Denies: Abdominal Pain, Diarrhea Genitourinary: Reports: Other (right groin pain). Denies: Dysuria, Frequency Neurological: Denies: Confusion, Dizziness, Headache - Patient Data Vitals - Most Recent: Last Vital Signs Temp 97.5 F 02/28/20 15:55 Pulse 74 02/28/20 15:55 Resp 22 H 02/28/20 15:55 BP 117/61 02/28/20 15:55 Pulse Ox 97 02/28/20 15:55 Weight - Most Recent: 80.921 kg I&O - Last 24 Hours: Intake & Output 02/28/20 02/28/20 02/28/20 06:59 14:59 22:59 Intake Total 2110 2050 Output Total 680 1000 Balance 1430 1050 Lab Results Last 24 Hours: Laboratory Results - last 24 hr 02/27/20 02/28/20 02/28/20 Range/Units 10:35 05:03 05:03 WBC 7.44 (4.0-11.0) K/uL RBC 3.60 L (4.30-5.90) M/uL Hgb 10.2 L (12.0-16.0) g/dL Hct 32.2 L (36.0-46.0) % MCV 89.4 (80.0-98.0) fL MCH 28.3 (27.0-32.0) pg MCHC 31.7 (31.0-37.0) g/dL RDW Std Deviation 46.3 (28.0-62.0) fl RDW Coeff of John 14 (11.0-15.0) % Plt Count 245 (150-400) K/uL MPV 9.30 (7.40-12.00) fL Add Manual Diff YES Neutrophils % (Manual) 72 (48.0-80.0) % Band Neutrophils % 7 % Lymphocytes % (Manual) 16 (16.0-40.0) % Monocytes % (Manual) 3 (0.0-15.0) % Eosinophils % (Manual) 2 (0.0-7.0) % Nucleated RBC % 0.0 /100WBC Absolute Seg Neuts 5.4 (1.4-5.7) Band Neutrophils # 0.5 Lymphocytes # (Manual) 1.2 (0.6-2.4) Monocytes # (Manual) 0.2 (0.0-0.8) Eosinophils # (Manual) 0.1 (0.0-0.7) Nucleated RBCs # 0 K/uL Sodium 139 (136-145) mmol/L Potassium 3.7 (3.5-5.1) mmol/L Chloride 106 (98-107) mmol/L Carbon Dioxide 25.1 (21.0-32.0) mmol/L BUN 8 (7.0-18.0) mg/dL Creatinine 0.9 (0.6-1.0) mg/dL Est Cr Clr Drug Dosing 65.34 mL/min Estimated GFR (MDRD) > 60.0 ml/min Glucose 100 (74-106) mg/dL Hemoglobin A1c 5.5 (4.5 - 6.2) % Calcium 8.4 L (8.5-10.1) mg/dL Total Bilirubin 0.5 (0.2-1.0) mg/dL AST 36 (15-37) IU/L ALT 75 H (14-63) IU/L Alkaline Phosphatase 132 H (46-116) U/L Total Protein 6.1 L (6.4-8.2) g/dL Albumin 2.3 L (3.4-5.0) g/dL Globulin 3.8 (2.6-4.0) g/dL Albumin/Globulin Ratio 0.6 L (0.9-1.6) Antonio Results Last 24 Hours: Microbiology 02/27/20 09:50 Aerobic Blood Culture - Preliminary Blood - Venous - Lab Draw NO GROWTH AFTER 1 DAY Anaerobic Blood Culture - Preliminary NO GROWTH AFTER 1 DAY 02/27/20 10:35 Aerobic Blood Culture - Preliminary Blood - Venous NO GROWTH AFTER 1 DAY Anaerobic Blood Culture - Preliminary NO GROWTH AFTER 1 DAY Med Orders - Current: Current Medications Acetaminophen (Tylenol) 650 mg PO Q4H PRN PRN Reason: Pain Last Admin: 02/28/20 10:35 Dose: 650 mg Documented by: Docusate Sodium (Colace) 200 mg PO DAILY [facility] Last Admin: 02/28/20 10:37 Dose: 200 mg Documented by: Enoxaparin Sodium (Lovenox) 40 mg SUBCUT Q24H [facility] Last Admin: 02/28/20 15:40 Dose: 40 mg Documented by: Piperacillin Sod/Tazobactam (Sod 3.375 gm/ Sodium Chloride) 100 mls @ 200 mls/hr IV Q6H [facility] Last Admin: 02/28/20 15:40 Dose: 200 mls/hr Documented by: Vancomycin HCl 1 gm/ Sodium (Chloride) 250 mls @ 250 mls/hr IV Q12H [facility] Last Admin: 02/28/20 10:43 Dose: 250 mls/hr Documented by: Lactated Ringer's (Ringers, Lactated) 1,000 mls @ 125 mls/hr IV ASDIRECTED [facility] Last Admin: 02/28/20 16:33 Dose: 125 mls/hr Documented by: Morphine Sulfate (Morphine) 2 mg IVPUSH Q4H PRN PRN Reason: Pain Last Admin: 02/27/20 22:04 Dose: 2 mg Documented by: Ondansetron HCl (Zofran) 4 mg IVPUSH Q8H PRN PRN Reason: Nausea/Vomiting Last Admin: 02/27/20 17:27 Dose: 4 mg Documented by: Discontinued Medications Acetaminophen (Tylenol) 650 mg PO Q4H PRN PRN Reason: Pain (Mild 1-3)/fever Sodium Chloride (Normal Saline) 1,000 mls @ 999 mls/hr IV BOLUS ONE Stop: 02/27/20 11:17 Last Admin: 02/27/20 10:43 Dose: 999 mls/hr Documented by: Vancomycin HCl 1.25 gm/ Sodium (Chloride) 250 mls @ 167 mls/hr IV ONETIME ONE Stop: 02/27/20 11:48 Last Admin: 02/27/20 10:42 Dose: Not Given Documented by: Vancomycin HCl 1.5 gm/ Sodium (Chloride) 500 mls @ 333 mls/hr IV NOW STA Stop: 02/27/20 11:50 Last Admin: 02/27/20 10:42 Dose: Not Given Documented by: Ampicillin Sodium/Sulbactam (Sodium 3 gm/ Sodium Chloride) 100 mls @ 200 mls/hr IV ONETIME ONE Stop: 02/27/20 10:54 Last Admin: 02/27/20 11:28 Dose: 200 mls/hr Documented by: Vancomycin HCl 1.5 gm/ Premix 300 mls @ 199.815 mls/hr IV NOW STA Stop: 02/27/20 11:59 Last Admin: 02/27/20 10:45 Dose: 199.815 mls/hr Documented by: Iopamidol (Isovue Multipack-370 (76%)) 100 ml IVPUSH ONETIME ONE Stop: 02/27/20 12:22 Last Admin: 02/27/20 12:22 Dose: 100 ml Documented by: Morphine Sulfate (Morphine) 2 mg IVPUSH ONETIME ONE Stop: 02/27/20 10:21 Last Admin: 02/27/20 10:45 Dose: 2 mg Documented by: Ondansetron HCl (Zofran) 4 mg IVPUSH ONETIME ONE Stop: 02/27/20 10:18 Last Admin: 02/27/20 10:45 Dose: 4 mg Documented by: Potassium Chloride (Klor-Con M20) 20 meq PO ONETIME ONE Stop: 02/27/20 11:36 Last Admin: 02/27/20 12:51 Dose: 20 meq Documented by: Potassium Chloride (Klor-Con M20) 40 meq PO ONETIME ONE Stop: 02/27/20 16:04 Last Admin: 02/27/20 16:53 Dose: 40 meq Documented by: - Exam General: Alert, Oriented Lungs: Clear to Auscultation, Normal Respiratory Effort Cardiovascular: Regular Rate, Regular Rhythm GI/Abdominal Exam: Normal Bowel Sounds, Soft, Non-Tender (Female) Exam: Other (erythema and tenderness to touch of right suprabubic region, right labia, right perianal areas. Right labia abscess draning pus. Cellulitis appears better controlled than previous day. ) Sepsis Event Note - Evaluation Sepsis Screening Result: No Definite Risk - Focused Exam Vital Signs: Vital Signs Temp Pulse Resp BP Pulse Ox 02/28/20 15:55 97.5 F 74 22 H 117/61 97 02/28/20 11:45 97.6 F 71 14 105/66 93 L 02/28/20 07:55 98.8 F 71 12 117/64 94 L - Problem List Review Problem List Initiated/Reviewed/Updated: Yes - My Orders Last 24 Hours: My Active Orders 02/27/20 23:00 Vancomycin [Vancocin] 1 gm Sodium Chloride 0.9% [Normal Saline (AdvBag)] 250 ml IV Q12H 02/28/20 15:10 CULTURE WOUND [RM] Routine 02/29/20 05:11 BASIC METABOLIC PANEL,BMP [CHEM] AM CBC WITH AUTO DIFF [HEME] AM 02/29/20 10:00 VANCOMYCIN TROUGH [CHEM] Routine - Plan Plan:: Cellulitis of right groin, right perianal area, right labia majora- Vancomycin Q12, Zosyn 3gm Q6, Blood cultures pending, Wound culture pending, LR 125/HR, Zofran 4mg PRN for Nausea/Vomiting, Lovenox 40mg daily, Morphine 2mg PRN Q4 HR, Tylenol PRN Pain, [employer] consult Transaminitis- US RUQ performed which showed cholelithiasis without cholecystitis. Patients liver enzymes are improving. <Elan Adam - Last Filed: 03/01/20 12:26> - Patient Data Vitals - Most Recent: Last Vital Signs Temp 36.7 C 03/01/20 09:00 Pulse 80 03/01/20 09:00 Resp 16 03/01/20 09:00 BP 134/67 03/01/20 09:00 Pulse Ox 97 03/01/20 09:00 I&O - Last 24 Hours: Intake & Output 02/29/20 03/01/20 03/01/20 22:59 06:59 14:59 Intake Total 1450 300 Output Total 750 1250 Balance 700 -950 Lab Results Last 24 Hours: Laboratory Results - last 24 hr 03/01/20 03/01/20 Range/Units 05:07 05:07 WBC 6.67 (4.0-11.0) K/uL RBC 3.58 L (4.30-5.90) M/uL Hgb 10.1 L (12.0-16.0) g/dL Hct 32.1 L (36.0-46.0) % MCV 89.7 (80.0-98.0) fL MCH 28.2 (27.0-32.0) pg MCHC 31.5 (31.0-37.0) g/dL RDW Std Deviation 46.7 (28.0-62.0) fl RDW Coeff of John 14 (11.0-15.0) % Plt Count 246 (150-400) K/uL MPV 9.10 (7.40-12.00) fL Add Manual Diff YES Neutrophils % (Manual) 70 (48.0-80.0) % Band Neutrophils % 12 % Lymphocytes % (Manual) 17 (16.0-40.0) % Monocytes % (Manual) 1 (0.0-15.0) % Nucleated RBC % 0.0 /100WBC Absolute Seg Neuts 4.7 (1.4-5.7) Band Neutrophils # 0.8 Lymphocytes # (Manual) 1.1 (0.6-2.4) Monocytes # (Manual) 0.1 (0.0-0.8) Nucleated RBCs # 0 K/uL Sodium 142 (136-145) mmol/L Potassium 3.4 L (3.5-5.1) mmol/L Chloride 106 (98-107) mmol/L Carbon Dioxide 26.3 (21.0-32.0) mmol/L BUN 6 L (7.0-18.0) mg/dL Creatinine 0.9 (0.6-1.0) mg/dL Est Cr Clr Drug Dosing 65.34 mL/min Estimated GFR (MDRD) > 60.0 ml/min Glucose 92 (74-106) mg/dL Calcium 8.3 L (8.5-10.1) mg/dL Antonio Results Last 24 Hours: Microbiology 02/27/20 09:50 Aerobic Blood Culture - Preliminary Blood - Venous - Lab Draw NO GROWTH AFTER 3 DAYS Anaerobic Blood Culture - Preliminary NO GROWTH AFTER 3 DAYS 02/27/20 10:35 Aerobic Blood Culture - Preliminary Blood - Venous NO GROWTH AFTER 3 DAYS Anaerobic Blood Culture - Preliminary NO GROWTH AFTER 3 DAYS 02/29/20 16:27 Gram Stain - Final Labia - Right Wound Culture - Preliminary 02/28/20 15:10 Wound Culture - Final Labia - Right (Mrsa) Staphylococcus Aureus Skin Bette Med Orders - Current: Current Medications Acetaminophen (Tylenol) 650 mg PO Q4H PRN PRN Reason: Pain Last Admin: 03/01/20 04:42 Dose: 650 mg Documented by: Docusate Sodium (Colace) 200 mg PO DAILY [facility] Last Admin: 03/01/20 08:45 Dose: 200 mg Documented by: Enoxaparin Sodium (Lovenox) 40 mg SUBCUT Q24H [facility] Last Admin: 02/29/20 15:19 Dose: Not Given Documented by: Piperacillin Sod/Tazobactam (Sod 3.375 gm/ Sodium Chloride) 100 mls @ 200 mls/hr IV Q6H [facility] Last Admin: 03/01/20 10:30 Dose: 200 mls/hr Documented by: Vancomycin HCl 1.25 gm/ Sodium (Chloride) 250 mls @ 250 mls/hr IV Q12H [facility] Last Admin: 03/01/20 11:11 Dose: 250 mls/hr Documented by: Morphine Sulfate (Morphine) 2 mg IVPUSH Q4H PRN PRN Reason: Pain Last Admin: 02/27/20 22:04 Dose: 2 mg Documented by: Ondansetron HCl (Zofran) 4 mg IVPUSH Q8H PRN PRN Reason: Nausea/Vomiting Last Admin: 02/27/20 17:27 Dose: 4 mg Documented by: Potassium Chloride (Potassium Chloride) 20 meq PO BID [facility] Last Admin: 03/01/20 08:44 Dose: 20 meq Documented by: Discontinued Medications Acetaminophen (Tylenol) 650 mg PO Q4H PRN PRN Reason: Pain (Mild 1-3)/fever Albuterol (Proventil Neb Soln) 2.5 mg NEB ONETIME PRN PRN Reason: Wheezing Atropine Sulfate (Atropine 0.1 Mg/Ml) 0.5 mg IVPUSH ASDIRECTED PRN PRN Reason: Hypo-perfusion Atropine Sulfate (Atropine 0.1 Mg/Ml) 1 mg IVPUSH ASDIRECTED PRN PRN Reason: Hypo-Perfusion Bupivacaine HCl (Sensorcaine-Mpf 0.25%) Confirm Administered Dose 10 ml .ROUTE .STK-MED ONE Stop: 02/29/20 15:43 Bupivacaine HCl (Sensorcaine-Mpf 0.5%) Confirm Administered Dose 10 ml .ROUTE .STK-MED ONE Stop: 02/29/20 15:43 Dextrose/Water (Dextrose 50% In Water) 50 ml IVPUSH ASDIRECTED PRN PRN Reason: Hypoglycemia Epinephrine HCl (Epinephrine 1:10,000) 1 mg IVPUSH ASDIRECTED PRN PRN Reason: ACLS Guidelines Fentanyl (Sublimaze) Confirm Administered Dose 100 mcg .ROUTE .STK-MED ONE Stop: 02/29/20 16:28 Fentanyl (Sublimaze) Confirm Administered Dose 100 mcg .ROUTE .STK-MED ONE Stop: 02/29/20 16:36 Fentanyl (Sublimaze) 50 mcg IVPUSH Q5M PRN PRN Reason: Pain Last Admin: 02/29/20 17:27 Dose: 50 mcg Documented by: Hydromorphone HCl (Dilaudid) 0.5 mg IVPUSH .Q5MIN PRN PRN Reason: Pain (severe 7-10) Sodium Chloride (Normal Saline) 1,000 mls @ 999 mls/hr IV BOLUS ONE Stop: 02/27/20 11:17 Last Admin: 02/27/20 10:43 Dose: 999 mls/hr Documented by: Vancomycin HCl 1.25 gm/ Sodium (Chloride) 250 mls @ 167 mls/hr IV ONETIME ONE Stop: 02/27/20 11:48 Last Admin: 02/27/20 10:42 Dose: Not Given Documented by: Vancomycin HCl 1.5 gm/ Sodium (Chloride) 500 mls @ 333 mls/hr IV NOW STA Stop: 02/27/20 11:50 Last Admin: 02/27/20 10:42 Dose: Not Given Documented by: Ampicillin Sodium/Sulbactam (Sodium 3 gm/ Sodium Chloride) 100 mls @ 200 mls/hr IV ONETIME ONE Stop: 02/27/20 10:54 Last Admin: 02/27/20 11:28 Dose: 200 mls/hr Documented by: Vancomycin HCl 1.5 gm/ Premix 300 mls @ 199.815 mls/hr IV NOW STA Stop: 02/27/20 11:59 Last Admin: 02/27/20 10:45 Dose: 199.815 mls/hr Documented by: Vancomycin HCl 1 gm/ Sodium (Chloride) 250 mls @ 250 mls/hr IV Q12H [facility] Last Admin: 02/28/20 23:14 Dose: 250 mls/hr Documented by: Lactated Ringer's (Ringers, Lactated) 1,000 mls @ 125 mls/hr IV ASDIRECTED [facility] Last Admin: 03/01/20 04:29 Dose: 125 mls/hr Documented by: Bupivacaine HCl/Epinephrine Bitart (Sensorc Mpf 0.25%-Epi [id number]) Confirm Administered Dose 30 mls @ as directed .ROUTE .STK-MED ONE Stop: 02/29/20 15:43 Acetaminophen (Ofirmev) Confirm Administered Dose 100 mls @ as directed .ROUTE .STK-MED ONE Stop: 02/29/20 16:13 Iopamidol (Isovue Multipack-370 (76%)) 100 ml IVPUSH ONETIME ONE Stop: 02/27/20 12:22 Last Admin: 02/27/20 12:22 Dose: 100 ml Documented by: Ketorolac Tromethamine (Toradol) Confirm Administered Dose 30 mg .ROUTE .STK-MED ONE Stop: 02/29/20 17:26 Lidocaine HCl (Xylocaine-Mpf 1%) Confirm Administered Dose 5 ml .ROUTE .STK-MED ONE Stop: 02/29/20 16:19 Midazolam HCl (Versed 1 Mg/Ml) Confirm Administered Dose 2 mg .ROUTE .STK-MED ONE Stop: 02/29/20 16:14 Morphine Sulfate (Morphine) 2 mg IVPUSH ONETIME ONE Stop: 02/27/20 10:21 Last Admin: 02/27/20 10:45 Dose: 2 mg Documented by: Naloxone HCl (Narcan) 0.1 mg IVPUSH ASDIRECTED PRN PRN Reason: Respiratory Depression Ondansetron HCl (Zofran) 4 mg IVPUSH ONETIME ONE Stop: 02/27/20 10:18 Last Admin: 02/27/20 10:45 Dose: 4 mg Documented by: Ondansetron HCl (Zofran) 4 mg IVPUSH ONETIME PRN PRN Reason: Nausea/Vomiting Potassium Chloride (Klor-Con M20) 20 meq PO ONETIME ONE Stop: 02/27/20 11:36 Last Admin: 02/27/20 12:51 Dose: 20 meq Documented by: Potassium Chloride (Klor-Con M20) 40 meq PO ONETIME ONE Stop: 02/27/20 16:04 Last Admin: 02/27/20 16:53 Dose: 40 meq Documented by: Propofol (Diprivan 20 Ml) Confirm Administered Dose 200 mg .ROUTE .STK-MED ONE Stop: 02/29/20 14:09 Sepsis Event Note - Focused Exam Vital Signs: Vital Signs Temp Pulse Resp BP Pulse Ox 03/01/20 09:00 36.7 C 80 16 134/67 97 03/01/20 03:55 36.8 C 68 17 161/75 H 93 L - My Orders Last 24 Hours: My Active Orders 03/01/20 Breakfast Regular Diet [DIET] 03/02/20 10:30 VANCOMYCIN TROUGH [CHEM] Routine - Plan Plan:: I have seen and evaluated the patient and agree with the residents note unless specified in my note
[2020-02-29] MEDS: Lactated Ringers 1,000 ML IV SCH ×2 (03:19→15:02)
[2020-02-29] MEDS: Piperacillin/Tazobactam 3.375 GM in Sodium Chloride 0.9% 100 ML IV SCH ×4 (03:20→22:15)
--- NOTE | 2020-02-29 03:27 | CONS ---
DATE OF CONSULTATION: 02/28/2020 DATE OF : 1965 PRIMARY CARE PHYSICIAN: None PCP HISTORY OF PRESENT ILLNESS: The patient is a pleasant 54-year-old female. Apparently, last week, Thursday, she said she popped a small superficial abscess, she said right kind of where her legs and perineum area kind of combine. It could have been an ingrown hair she said. The next day, it started getting warmer and more painful. She says she went to her primary care provider on Thursday and was started on Bactrim. She has been on Bactrim for the past 5 to 6 days. She says that she continued to have spread of the cellulitis up into her groin area, and it was becoming tender. She also had some nausea and vomiting and some dizziness, although she thinks the nausea, vomiting, and dizziness were side effects of her antibiotic. She denies any fevers or chills. She denies any changes in her bowel habit, although she said she did have a loss of appetite. Since the cellulitis was not improving on the outpatient antibiotics, she went to the ER and was admitted yesterday to the Hospital Service. They did consult because of an abscess of the labia and cellulitis extending into the perineum and into the right groin. General Surgery was consulted for evaluation of the cellulitis. The patient says she is feeling much better since being in the hospital. The erythema stopped spreading and maybe even getting less, and erythema she says definitely is less intensity. White cell count is 7.44, although she does have a bandemia of 7, down from 9 yesterday. She had a CT scan done, which did show edema of fluid and potentially early abscess or phlegmon of the subcutaneous tissue tracking from the labia majora on the right side into the superficial soft tissue of the groin. PAST MEDICAL HISTORY: The patient denies any. HOME MEDICATION: The patient denies any regular ones, but she was on Bactrim for this infection. ALLERGIES: No known drug allergies. PAST SURGICAL HISTORY: 1. Ankle surgery. 2. Appendectomy. 3. Tonsillectomy. FAMILY HISTORY: 1. Father had heart disease. 2. Grandfather with colon cancer. 3. Grandmother with intestinal cancer. 4. Sister with leukemia. SOCIAL HISTORY: The patient denies any tobacco use and denies any drug use. Only occasional alcohol use. REVIEW OF SYSTEMS: A complete 12+ review of systems was done and was negative, except for the HPI. PHYSICAL EXAMINATION: GENERAL: The patient is lying comfortably in her hospital bed. She is alert, oriented, and in no acute distress. VITAL SIGNS: Temperature is 97.6, pulse is 71, blood pressure is 105/66, and saturating 93% on room air. ABDOMEN: Soft, nontender, and nondistended. SKIN: I did examine her perineum and right groin with a nurse incoming freight clerk in the room. The base of her right labia is where the infection likely started. This is draining some purulent material. There is surrounding edema and erythema. This does spread up, mainly up into the right groin area. The right groin area does have erythema. It is indurated but I do not feel any fluctuance yet. The erythema is blanching, and the area is tender. IMAGING: As per HPI. LABORATORY: White cell count is 7.44, hemoglobin is 10.2, and platelet count is 245; bandemia at 7. Sodium is 139, potassium is 3.7, chloride is 106, bicarb is 25.1, BUN is 8, creatinine is 0.9, and glucose is 100. Cultures: So far, blood cultures preliminarily have showed no growth after 1 day. ASSESSMENT AND PLAN: This is a 54-year-old female, who appears to have had an ingrown hair or a boil at the base of her labia that developed into an abscess that has spread as a cellulitis into the right groin. It is now draining. Obstetrics/Gynecology has been consulted for this. As far as the cellulitis extending up into the right groin area, currently, this mainly feels edematous and indurated. I do not feel an actual abscess cavity yet, and none was seen on the CT scan. I did go over with the patient that this could convalesce into an abscess that potentially might be drained. I went over that Surgery will continue to follow. She should continue her antibiotic, as this seems to be improving her condition. All of the patient's questions were answered. I talked to the Medicine team and her nurse. SABRINA / NASEEM /[id number] [facility]
[2020-02-29 05:14] LABS: BLOOD UREA NITROGEN,BUN 6 mg/dL (7.0-18.0); CARBON DIOXIDE,CO2 27.1 mmol/L (21.0-32.0); CHLORIDE,CL 107 mmol/L (98-107); GLUCOSE RANDOM 100 mg/dL (74-106); POTASSIUM,K 3.6 mmol/L (3.5-5.1); SODIUM,NA 141 mmol/L (136-145)
[2020-02-29] MEDS: Docusate Sodium 100 MG Cap PO SCH (08:41)
--- NOTE | 2020-02-29 09:50 | PCM.PREANE ---
Preanesthetic Assessment - Anesthesia/Transfusion/Family Hx Anesthesia History: Prior Anesthesia Reaction Other Type of Anesthesia Reaction Comment: low BP after BTL Family History of Anesthesia Reaction: No Transfusion History: Prior Transfusion Without Reaction Intubation History: Unknown - Review of Systems General: No Symptoms Pulmonary: No Symptoms Cardiovascular: No Symptoms Gastrointestinal: No Symptoms Neurological: No Symptoms Other: Reports: None - Physical Assessment Vital Signs: Last Vital Signs Temp 36.8 C 02/29/20 07:45 Pulse 71 02/29/20 07:45 Resp 18 02/29/20 07:45 BP 134/66 02/29/20 07:45 Pulse Ox 92 L 02/29/20 07:45 Height: 5 ft 6 in Weight: 80.921 kg ASA Class: 2E Mental Status: Alert & Oriented x3 Airway Class: Mallampati = 1 Dentition: Reports: Normal Dentition Thyro-Mental Finger Breadths: 3 Mouth Opening Finger Breadths: 3 ROM/Head Extension: Full Lungs: Clear to Auscultation, Normal Respiratory Effort Cardiovascular: Regular Rate, Regular Rhythm - Lab Values: Laboratory Last Values WBC 6.54 K/uL (4.0-11.0) 02/29/20 04:52 RBC 3.65 M/uL (4.30-5.90) L 02/29/20 04:52 Hgb 10.3 g/dL (12.0-16.0) L 02/29/20 04:52 Hct 32.6 % (36.0-46.0) L 02/29/20 04:52 MCV 89.3 fL (80.0-98.0) 02/29/20 04:52 MCH 28.2 pg (27.0-32.0) 02/29/20 04:52 MCHC 31.6 g/dL (31.0-37.0) 02/29/20 04:52 RDW Std Deviation 46.0 fl (28.0-62.0) 02/29/20 04:52 RDW Coeff of John 14 % (11.0-15.0) 02/29/20 04:52 Plt Count 227 K/uL (150-400) 02/29/20 04:52 MPV 9.10 fL (7.40-12.00) 02/29/20 04:52 Add Manual Diff YES 02/29/20 04:52 Neutrophils % (Manual) 67 % (48.0-80.0) 02/29/20 04:52 Band Neutrophils % 10 % 02/29/20 04:52 Lymphocytes % (Manual) 14 % (16.0-40.0) L 02/29/20 04:52 Monocytes % (Manual) 6 % (0.0-15.0) 02/29/20 04:52 Eosinophils % (Manual) 3 % (0.0-7.0) 02/29/20 04:52 Basophils % (Manual) 1 % (0.0-1.5) 02/27/20 10:35 Metamyelocytes % 1 % 02/27/20 10:35 Myelocytes % 1 % 02/27/20 10:35 Nucleated RBC % 0.0 /100WBC 02/29/20 04:52 Absolute Seg Neuts 4.4 (1.4-5.7) 02/29/20 04:52 Band Neutrophils # 0.7 02/29/20 04:52 Lymphocytes # (Manual) 0.9 (0.6-2.4) 02/29/20 04:52 Monocytes # (Manual) 0.4 (0.0-0.8) 02/29/20 04:52 Eosinophils # (Manual) 0.2 (0.0-0.7) 02/29/20 04:52 Basophils # (Manual) 0.1 (0.0-0.1) 02/27/20 10:35 Absolute Metamyelocyte 0.1 02/27/20 10:35 Absolute Myelocytes 0.1 02/27/20 10:35 Nucleated RBCs # 0 K/uL 02/29/20 04:52 Toxic Granulation MODERATE 02/27/20 10:35 Lactate 0.9 mmol/L (0.20-2.00) 02/27/20 10:35 Sodium 141 mmol/L (136-145) 02/29/20 04:52 Potassium 3.6 mmol/L (3.5-5.1) 02/29/20 04:52 Chloride 107 mmol/L (98-107) 02/29/20 04:52 Carbon Dioxide 27.1 mmol/L (21.0-32.0) 02/29/20 04:52 BUN 6 mg/dL (7.0-18.0) L 02/29/20 04:52 Creatinine 0.8 mg/dL (0.6-1.0) 02/29/20 04:52 Est Cr Clr Drug Dosing 73.51 mL/min 02/29/20 04:52 Estimated GFR (MDRD) > 60.0 ml/min 02/29/20 04:52 Glucose 100 mg/dL (74-106) 02/29/20 04:52 Hemoglobin A1c 5.5 % (4.5-6.2) 02/27/20 10:35 Calcium 8.0 mg/dL (8.5-10.1) L 02/29/20 04:52 Total Bilirubin 0.5 mg/dL (0.2-1.0) 02/28/20 05:03 AST 36 IU/L (15-37) 02/28/20 05:03 ALT 75 IU/L (14-63) H 02/28/20 05:03 Alkaline Phosphatase 132 U/L (46-116) H 02/28/20 05:03 Troponin I < 0.050 ng/mL (0.000-0.056) 02/27/20 10:35 Total Protein 6.1 g/dL (6.4-8.2) L 02/28/20 05:03 Albumin 2.3 g/dL (3.4-5.0) L 02/28/20 05:03 Globulin 3.8 g/dL (2.6-4.0) 02/28/20 05:03 Albumin/Globulin Ratio 0.6 (0.9-1.6) L 02/28/20 05:03 Urine Color YELLOW 02/27/20 12:47 Urine Appearance CLEAR 02/27/20 12:47 Urine pH 6.5 (5.0-8.0) 02/27/20 12:47 Ur Specific [place] <= 1.005 (1.001-1.035) 02/27/20 12:47 Urine Protein NEGATIVE mg/dL (NEGATIVE) 02/27/20 12:47 Urine Glucose (UA) NEGATIVE mg/dL (NEGATIVE) 02/27/20 12:47 Urine Ketones NEGATIVE mg/dL (NEGATIVE) 02/27/20 12:47 Urine Occult Blood NEGATIVE (NEGATIVE) 02/27/20 12:47 Urine Nitrite NEGATIVE (NEGATIVE) 02/27/20 12:47 Urine Bilirubin NEGATIVE (NEGATIVE) 02/27/20 12:47 Urine Urobilinogen 0.2 EU/dL (<2.0) 02/27/20 12:47 Ur Leukocyte Esterase NEGATIVE (NEGATIVE) 02/27/20 12:47 SARS-CoV-2 RNA (BENI) NEGATIVE (NEGATIVE) 02/27/20 12:42 - Allergies Allergies/Adverse Reactions: Allergies Allergy/AdvReac Type Severity Reaction Status Date / Time No Known Allergies Allergy Verified 02/27/20 16:23 - Blood Blood Available: No - Anesthesia Plan Pre-Op Medication Ordered: None - Acknowledgements Anesthesia Type Planned: General Anesthesia Pt an Appropriate Candidate for the Planned Anesthesia: Yes Alternatives and Risks of Anesthesia Discussed w Pt/Guardian: Yes Pt/Guardian Understands and Agrees with Anesthesia Plan: Yes PreAnesthesia Questionnaire Neurological History: Reports: Vertigo Other Neuro History: syncope a week ago, small bruise on the left side of the face Dermatologic History: Reports: Cellulitis, Other (See Below) Other Dermatologic History: cellulitis right groin and kalin and rectal area - Infectious Disease History Infectious Disease History: Reports: Chicken Pox, Measles - Past Surgical History HEENT Surgical History: Reports: Adenoidectomy, Tonsillectomy Female Surgical History: Reports: Cervical Conization, Tubal Ligation, Other (See Below) (urethral dilatation x2 as child) - SUBSTANCE USE Tobacco Use Status *Q: Never Tobacco User Second Hand Smoke Exposure: Yes Recreational Drug Use History: No - HOME MEDS Home Medications: Home Meds Aspirin 81 mg PO DAILY 02/27/20 [History] Sulfamethoxazole/Trimethoprim [Bactrim Ds Tablet] 1 each PO BID 02/27/20 [History] - CURRENT (IN HOUSE) MEDS Current Meds: Current Medications Acetaminophen (Tylenol) 650 mg PO Q4H PRN PRN Reason: Pain Last Admin: 02/28/20 20:25 Dose: 650 mg Documented by: Docusate Sodium (Colace) 200 mg PO DAILY [facility] Last Admin: 02/29/20 08:41 Dose: 200 mg Documented by: Enoxaparin Sodium (Lovenox) 40 mg SUBCUT Q24H [facility] Last Admin: 02/28/20 15:40 Dose: 40 mg Documented by: Piperacillin Sod/Tazobactam (Sod 3.375 gm/ Sodium Chloride) 100 mls @ 200 mls/hr IV Q6H [facility] Last Admin: 02/29/20 03:20 Dose: 200 mls/hr Documented by: Vancomycin HCl 1 gm/ Sodium (Chloride) 250 mls @ 250 mls/hr IV Q12H [facility] Last Admin: 02/28/20 23:14 Dose: 250 mls/hr Documented by: Lactated Ringer's (Ringers, Lactated) 1,000 mls @ 125 mls/hr IV ASDIRECTED [facility] Last Admin: 02/29/20 03:19 Dose: 125 mls/hr Documented by: Morphine Sulfate (Morphine) 2 mg IVPUSH Q4H PRN PRN Reason: Pain Last Admin: 02/27/20 22:04 Dose: 2 mg Documented by: Ondansetron HCl (Zofran) 4 mg IVPUSH Q8H PRN PRN Reason: Nausea/Vomiting Last Admin: 02/27/20 17:27 Dose: 4 mg Documented by: Discontinued Medications Acetaminophen (Tylenol) 650 mg PO Q4H PRN PRN Reason: Pain (Mild 1-3)/fever Sodium Chloride (Normal Saline) 1,000 mls @ 999 mls/hr IV BOLUS ONE Stop: 02/27/20 11:17 Last Admin: 02/27/20 10:43 Dose: 999 mls/hr Documented by: Vancomycin HCl 1.25 gm/ Sodium (Chloride) 250 mls @ 167 mls/hr IV ONETIME ONE Stop: 02/27/20 11:48 Last Admin: 02/27/20 10:42 Dose: Not Given Documented by: Vancomycin HCl 1.5 gm/ Sodium (Chloride) 500 mls @ 333 mls/hr IV NOW STA Stop: 02/27/20 11:50 Last Admin: 02/27/20 10:42 Dose: Not Given Documented by: Ampicillin Sodium/Sulbactam (Sodium 3 gm/ Sodium Chloride) 100 mls @ 200 mls/hr IV ONETIME ONE Stop: 02/27/20 10:54 Last Admin: 02/27/20 11:28 Dose: 200 mls/hr Documented by: Vancomycin HCl 1.5 gm/ Premix 300 mls @ 199.815 mls/hr IV NOW STA Stop: 02/27/20 11:59 Last Admin: 02/27/20 10:45 Dose: 199.815 mls/hr Documented by: Iopamidol (Isovue Multipack-370 (76%)) 100 ml IVPUSH ONETIME ONE Stop: 02/27/20 12:22 Last Admin: 02/27/20 12:22 Dose: 100 ml Documented by: Morphine Sulfate (Morphine) 2 mg IVPUSH ONETIME ONE Stop: 02/27/20 10:21 Last Admin: 02/27/20 10:45 Dose: 2 mg Documented by: Ondansetron HCl (Zofran) 4 mg IVPUSH ONETIME ONE Stop: 02/27/20 10:18 Last Admin: 02/27/20 10:45 Dose: 4 mg Documented by: Potassium Chloride (Klor-Con M20) 20 meq PO ONETIME ONE Stop: 02/27/20 11:36 Last Admin: 02/27/20 12:51 Dose: 20 meq Documented by: Potassium Chloride (Klor-Con M20) 40 meq PO ONETIME ONE Stop: 02/27/20 16:04 Last Admin: 02/27/20 16:53 Dose: 40 meq Documented by:
[2020-02-29] MEDS ORDERED: Propofol 200 MG/20 ML SDV ONE (14:08)
[2020-02-29] MEDS: Enoxaparin 40 MG/0.4 ML Syringe SUBCUT SCH (15:19)
--- NOTE | 2020-02-29 15:30 | PN ---
SUBJECTIVE: The patient said she feels somewhat the same as yesterday. She feels the redness in her groin has decreased. She is still having drainage from her labia. RELIGION DEPARTMENT CHAIR did come and do a consult this morning. They want to go and drain the abscess in the labia later today. OBJECTIVE: GENERAL: The patient is sitting comfortably in her hospital bed. She is alert and oriented, in no acute distress. VITAL SIGNS: Temperature is 96.9, pulse is 72, blood pressure is 131/59, saturating 96% on room air. SKIN: Still has some blanching erythema at her right groin area. This does have some induration, not really fluctuant. It is tender to palpation. This erythema and redness does go down into her right labia. This continues to drain. LABS: White cell count is 6.54, hemoglobin 10.3, platelet count is 227, 10% bands. Blood cultures are still no growth after 2 days. Preliminary wound culture shows coagulase-positive Staphylococcus. ASSESSMENT AND PLAN: This is a pleasant 54-year-old female with right kalin-labial abscess. CT scan done several days ago did show maybe early abscess in the soft tissue in the right groin or phlegmon. The erythema seems to be decreasing with antibiotics. The patient does have drainage from her labia. RELIGION DEPARTMENT CHAIR has seen and is taking her back to drain the abscess. I did go over with the patient that hopefully this will help with the cellulitis and induration in the right groin. I did go over with the patient that she could develop a subcutaneous abscess in the groin also that may be drained in the future. The patient understands. All the questions were answered. Did discuss with the hospital team. SABRINA GUSMAN /[id number] RICHARD
[2020-02-29] MEDS ORDERED: Bupivacaine 0.25% 10 ML SDV ONE (15:42)
[2020-02-29] MEDS ORDERED: Bupivacaine 0.5% 10 ML SDV ONE (15:42)
[2020-02-29] MEDS ORDERED: Bupivacaine 25%/EPINEPHrine/PF 30 ML ONE (15:42)
[2020-02-29] MEDS ORDERED: Midazolam 1 MG/ML 2 ML SDV ONE (16:13)
[2020-02-29] MEDS ORDERED: fentaNYL 100 MCG/2 ML SDV ONE ×2 (16:27→16:35)
--- NOTE | 2020-02-29 16:40 | PCM.OPNOTE ---
- General Post-Op/Procedure Note Date of Surgery/Procedure: 02/29/20 Operative Procedure(s): I&D R. labial absess Post-Op Diagnosis: Same Anesthesia Technique: General LMA Primary Surgeon: Chucho Preston EBL in mLs: 100 Complications: None Condition: Stable Free Text/Narrative:: Intake & Output 02/29/20 02/29/20 02/29/20 06:59 14:59 22:59 Intake Total 925 Output Total 1450 Balance -525
[2020-02-29] MEDS ORDERED: Naloxone 0.4 MG/ML Syringe IVPUSH PRN (16:58)
[2020-02-29] MEDS ORDERED: Ondansetron 4 MG/2 ML SDV IVPUSH PRN (16:58)
[2020-02-29] MEDS ORDERED: 50% Dextrose in Water 50 ML Syringe IVPUSH PRN (16:58)
[2020-02-29] MEDS ORDERED: HYDROmorphone 2 MG/ML Syringe IVPUSH PRN (16:58)
[2020-02-29] MEDS ORDERED: Albuterol 0.083% 2.5 MG/3 ML Neb Soln NEB PRN (16:58)
[2020-02-29] MEDS ORDERED: Atropine 0.1 MG/ML 10 ML Syringe IVPUSH PRN ×2 (16:58)
[2020-02-29] MEDS ORDERED: EPINEPHrine 1:10,000 1 MG/10 ML Syringe IVPUSH PRN (16:58)
--- NOTE | 2020-02-29 16:58 | PCM.PN ---
<Rodolfo Zabala - Last Filed: 02/29/20 16:48> - General Info Date of Service: 02/29/20 Subjective Update: Patient states less nausea and has a better appetite. Patient set to have I&D performed by Dr Preston in the afternoon. Denies fever, chills, nausea, vomiting. States her right sided groin pain is the same as previous day. - Review of Systems General: Denies: Fever, Weakness Pulmonary: Denies: Shortness of Breath, Pleuritic Chest Pain Cardiovascular: Denies: Chest Pain, Palpitations Gastrointestinal: Reports: Decreased Appetite. Denies: Abdominal Pain, Diarrhea, Nausea, Vomiting Genitourinary: Denies: Dysuria Neurological: Denies: Confusion, Dizziness - Patient Data Vitals - Most Recent: Last Vital Signs Temp 97.3 F 02/29/20 16:00 Pulse 76 02/29/20 16:00 Resp 22 H 02/29/20 16:00 BP 145/73 H 02/29/20 16:00 Pulse Ox 93 L 02/29/20 16:00 Weight - Most Recent: 80.921 kg I&O - Last 24 Hours: Intake & Output 02/29/20 02/29/20 02/29/20 06:59 14:59 22:59 Intake Total 925 Output Total 1450 Balance -525 Lab Results Last 24 Hours: Laboratory Results - last 24 hr 02/29/20 02/29/20 02/29/20 Range/Units 04:52 04:52 09:55 WBC 6.54 (4.0-11.0) K/uL RBC 3.65 L (4.30-5.90) M/uL Hgb 10.3 L (12.0-16.0) g/dL Hct 32.6 L (36.0-46.0) % MCV 89.3 (80.0-98.0) fL MCH 28.2 (27.0-32.0) pg MCHC 31.6 (31.0-37.0) g/dL RDW Std Deviation 46.0 (28.0-62.0) fl RDW Coeff of John 14 (11.0-15.0) % Plt Count 227 (150-400) K/uL MPV 9.10 (7.40-12.00) fL Add Manual Diff YES Neutrophils % (Manual) 67 (48.0-80.0) % Band Neutrophils % 10 % Lymphocytes % (Manual) 14 L (16.0-40.0) % Monocytes % (Manual) 6 (0.0-15.0) % Eosinophils % (Manual) 3 (0.0-7.0) % Nucleated RBC % 0.0 /100WBC Absolute Seg Neuts 4.4 (1.4-5.7) Band Neutrophils # 0.7 Lymphocytes # (Manual) 0.9 (0.6-2.4) Monocytes # (Manual) 0.4 (0.0-0.8) Eosinophils # (Manual) 0.2 (0.0-0.7) Nucleated RBCs # 0 K/uL Sodium 141 (136-145) mmol/L Potassium 3.6 (3.5-5.1) mmol/L Chloride 107 (98-107) mmol/L Carbon Dioxide 27.1 (21.0-32.0) mmol/L BUN 6 L (7.0-18.0) mg/dL Creatinine 0.8 (0.6-1.0) mg/dL Est Cr Clr Drug Dosing 73.51 mL/min Estimated GFR (MDRD) > 60.0 ml/min Glucose 100 (74-106) mg/dL Calcium 8.0 L (8.5-10.1) mg/dL Vancomycin Trough 6.5 (5.0-10.0) ug/mL Antonio Results Last 24 Hours: Microbiology 02/27/20 09:50 Aerobic Blood Culture - Preliminary Blood - Venous - Lab Draw NO GROWTH AFTER 2 DAYS Anaerobic Blood Culture - Preliminary NO GROWTH AFTER 2 DAYS 02/27/20 10:35 Aerobic Blood Culture - Preliminary Blood - Venous NO GROWTH AFTER 2 DAYS Anaerobic Blood Culture - Preliminary NO GROWTH AFTER 2 DAYS 02/28/20 15:10 Wound Culture - Preliminary Labia - Right Med Orders - Current: Current Medications Acetaminophen (Tylenol) 650 mg PO Q4H PRN PRN Reason: Pain Last Admin: 02/28/20 20:25 Dose: 650 mg Documented by: Docusate Sodium (Colace) 200 mg PO DAILY [facility] Last Admin: 02/29/20 08:41 Dose: 200 mg Documented by: Enoxaparin Sodium (Lovenox) 40 mg SUBCUT Q24H [facility] Last Admin: 02/29/20 15:19 Dose: Not Given Documented by: Piperacillin Sod/Tazobactam (Sod 3.375 gm/ Sodium Chloride) 100 mls @ 200 mls/hr IV Q6H [facility] Last Admin: 02/29/20 15:19 Dose: 200 mls/hr Documented by: Lactated Ringer's (Ringers, Lactated) 1,000 mls @ 125 mls/hr IV ASDIRECTED [facility] Last Admin: 02/29/20 15:02 Dose: 125 mls/hr Documented by: Vancomycin HCl 1.25 gm/ Sodium (Chloride) 250 mls @ 250 mls/hr IV Q12H [facility] Last Admin: 02/29/20 11:19 Dose: 250 mls/hr Documented by: Morphine Sulfate (Morphine) 2 mg IVPUSH Q4H PRN PRN Reason: Pain Last Admin: 02/27/20 22:04 Dose: 2 mg Documented by: Ondansetron HCl (Zofran) 4 mg IVPUSH Q8H PRN PRN Reason: Nausea/Vomiting Last Admin: 02/27/20 17:27 Dose: 4 mg Documented by: Discontinued Medications Acetaminophen (Tylenol) 650 mg PO Q4H PRN PRN Reason: Pain (Mild 1-3)/fever Bupivacaine HCl (Sensorcaine-Mpf 0.25%) Confirm Administered Dose 10 ml .ROUTE .STK-MED ONE Stop: 02/29/20 15:43 Bupivacaine HCl (Sensorcaine-Mpf 0.5%) Confirm Administered Dose 10 ml .ROUTE .STK-MED ONE Stop: 02/29/20 15:43 Fentanyl (Sublimaze) Confirm Administered Dose 100 mcg .ROUTE .STK-MED ONE Stop: 02/29/20 16:28 Fentanyl (Sublimaze) Confirm Administered Dose 100 mcg .ROUTE .STK-MED ONE Stop: 02/29/20 16:36 Sodium Chloride (Normal Saline) 1,000 mls @ 999 mls/hr IV BOLUS ONE Stop: 02/27/20 11:17 Last Admin: 02/27/20 10:43 Dose: 999 mls/hr Documented by: Vancomycin HCl 1.25 gm/ Sodium (Chloride) 250 mls @ 167 mls/hr IV ONETIME ONE Stop: 02/27/20 11:48 Last Admin: 02/27/20 10:42 Dose: Not Given Documented by: Vancomycin HCl 1.5 gm/ Sodium (Chloride) 500 mls @ 333 mls/hr IV NOW STA Stop: 02/27/20 11:50 Last Admin: 02/27/20 10:42 Dose: Not Given Documented by: Ampicillin Sodium/Sulbactam (Sodium 3 gm/ Sodium Chloride) 100 mls @ 200 mls/hr IV ONETIME ONE Stop: 02/27/20 10:54 Last Admin: 02/27/20 11:28 Dose: 200 mls/hr Documented by: Vancomycin HCl 1.5 gm/ Premix 300 mls @ 199.815 mls/hr IV NOW STA Stop: 02/27/20 11:59 Last Admin: 02/27/20 10:45 Dose: 199.815 mls/hr Documented by: Vancomycin HCl 1 gm/ Sodium (Chloride) 250 mls @ 250 mls/hr IV Q12H [facility] Last Admin: 02/28/20 23:14 Dose: 250 mls/hr Documented by: Bupivacaine HCl/Epinephrine Bitart (Sensorc Mpf 0.25%-Epi [id number]) Confirm Administered Dose 30 mls @ as directed .ROUTE .STK-MED ONE Stop: 02/29/20 15:43 Acetaminophen (Ofirmev) Confirm Administered Dose 100 mls @ as directed .ROUTE .STK-MED ONE Stop: 02/29/20 16:13 Iopamidol (Isovue Multipack-370 (76%)) 100 ml IVPUSH ONETIME ONE Stop: 02/27/20 12:22 Last Admin: 02/27/20 12:22 Dose: 100 ml Documented by: Lidocaine HCl (Xylocaine-Mpf 1%) Confirm Administered Dose 5 ml .ROUTE .STK-MED ONE Stop: 02/29/20 16:19 Midazolam HCl (Versed 1 Mg/Ml) Confirm Administered Dose 2 mg .ROUTE .STK-MED ONE Stop: 02/29/20 16:14 Morphine Sulfate (Morphine) 2 mg IVPUSH ONETIME ONE Stop: 02/27/20 10:21 Last Admin: 02/27/20 10:45 Dose: 2 mg Documented by: Ondansetron HCl (Zofran) 4 mg IVPUSH ONETIME ONE Stop: 02/27/20 10:18 Last Admin: 02/27/20 10:45 Dose: 4 mg Documented by: Potassium Chloride (Klor-Con M20) 20 meq PO ONETIME ONE Stop: 02/27/20 11:36 Last Admin: 02/27/20 12:51 Dose: 20 meq Documented by: Potassium Chloride (Klor-Con M20) 40 meq PO ONETIME ONE Stop: 02/27/20 16:04 Last Admin: 02/27/20 16:53 Dose: 40 meq Documented by: Propofol (Diprivan 20 Ml) Confirm Administered Dose 200 mg .ROUTE .STK-MED ONE Stop: 02/29/20 14:09 - Exam General: Alert, Oriented Lungs: Clear to Auscultation, Normal Respiratory Effort Cardiovascular: Regular Rate, Regular Rhythm GI/Abdominal Exam: Normal Bowel Sounds, Soft, Non-Tender (Female) Exam: Other (right suprapubic, labia and perianal areas have erythema with tenderness) Skin: Warm, Dry Sepsis Event Note - Evaluation Sepsis Screening Result: No Definite Risk - Focused Exam Vital Signs: Vital Signs Temp Pulse Resp BP Pulse Ox 02/29/20 16:00 97.3 F 76 22 H 145/73 H 93 L 02/29/20 12:00 96.9 F 72 20 131/59 L 93 L 02/29/20 07:45 98.3 F 71 18 134/66 92 L - Problem List Review Problem List Initiated/Reviewed/Updated: Yes - My Orders Last 24 Hours: My Active Orders 02/29/20 11:00 Vancomycin 1.25 gm Sodium Chloride 0.9% [Normal Saline (AdvBag)] 250 ml IV Q12H 03/01/20 05:11 BASIC METABOLIC PANEL,BMP [CHEM] AM CBC WITH AUTO DIFF [HEME] AM 03/01/20 22:30 VANCOMYCIN TROUGH [CHEM] Routine - Plan Plan:: Cellulitis of right groin, right perianal area, right labia majora- Patient will have I&D with Dr Preston this afternoon of the right labia abscess. Will wait for any recommendations. Vancomycin Q12, Zosyn 3gm Q6. Zofran 4mg PRN for Nausea/Vomiting, Lovenox 40mg daily, Morphine 2mg PRN Q4 HR, Tylenol PRN Pain <Jair,Hooria - Last Filed: 03/01/20 12:15> - Patient Data Vitals - Most Recent: Last Vital Signs Temp 36.7 C 03/01/20 09:00 Pulse 80 03/01/20 09:00 Resp 16 03/01/20 09:00 BP 134/67 03/01/20 09:00 Pulse Ox 97 03/01/20 09:00 I&O - Last 24 Hours: Intake & Output 02/29/20 03/01/20 03/01/20 22:59 06:59 14:59 Intake Total 1450 300 Output Total 750 1250 Balance 700 -950 Lab Results Last 24 Hours: Laboratory Results - last 24 hr 03/01/20 03/01/20 Range/Units 05:07 05:07 WBC 6.67 (4.0-11.0) K/uL RBC 3.58 L (4.30-5.90) M/uL Hgb 10.1 L (12.0-16.0) g/dL Hct 32.1 L (36.0-46.0) % MCV 89.7 (80.0-98.0) fL MCH 28.2 (27.0-32.0) pg MCHC 31.5 (31.0-37.0) g/dL RDW Std Deviation 46.7 (28.0-62.0) fl RDW Coeff of John 14 (11.0-15.0) % Plt Count 246 (150-400) K/uL MPV 9.10 (7.40-12.00) fL Add Manual Diff YES Neutrophils % (Manual) 70 (48.0-80.0) % Band Neutrophils % 12 % Lymphocytes % (Manual) 17 (16.0-40.0) % Monocytes % (Manual) 1 (0.0-15.0) % Nucleated RBC % 0.0 /100WBC Absolute Seg Neuts 4.7 (1.4-5.7) Band Neutrophils # 0.8 Lymphocytes # (Manual) 1.1 (0.6-2.4) Monocytes # (Manual) 0.1 (0.0-0.8) Nucleated RBCs # 0 K/uL Sodium 142 (136-145) mmol/L Potassium 3.4 L (3.5-5.1) mmol/L Chloride 106 (98-107) mmol/L Carbon Dioxide 26.3 (21.0-32.0) mmol/L BUN 6 L (7.0-18.0) mg/dL Creatinine 0.9 (0.6-1.0) mg/dL Est Cr Clr Drug Dosing 65.34 mL/min Estimated GFR (MDRD) > 60.0 ml/min Glucose 92 (74-106) mg/dL Calcium 8.3 L (8.5-10.1) mg/dL Antonio Results Last 24 Hours: Microbiology 02/27/20 09:50 Aerobic Blood Culture - Preliminary Blood - Venous - Lab Draw NO GROWTH AFTER 3 DAYS Anaerobic Blood Culture - Preliminary NO GROWTH AFTER 3 DAYS 02/27/20 10:35 Aerobic Blood Culture - Preliminary Blood - Venous NO GROWTH AFTER 3 DAYS Anaerobic Blood Culture - Preliminary NO GROWTH AFTER 3 DAYS 02/29/20 16:27 Gram Stain - Final Labia - Right Wound Culture - Preliminary 02/28/20 15:10 Wound Culture - Final Labia - Right (Mrsa) Staphylococcus Aureus Skin Bette Med Orders - Current: Current Medications Acetaminophen (Tylenol) 650 mg PO Q4H PRN PRN Reason: Pain Last Admin: 03/01/20 04:42 Dose: 650 mg Documented by: Docusate Sodium (Colace) 200 mg PO DAILY [facility] Last Admin: 03/01/20 08:45 Dose: 200 mg Documented by: Enoxaparin Sodium (Lovenox) 40 mg SUBCUT Q24H [facility] Last Admin: 02/29/20 15:19 Dose: Not Given Documented by: Piperacillin Sod/Tazobactam (Sod 3.375 gm/ Sodium Chloride) 100 mls @ 200 mls/hr IV Q6H [facility] Last Admin: 03/01/20 10:30 Dose: 200 mls/hr Documented by: Vancomycin HCl 1.25 gm/ Sodium (Chloride) 250 mls @ 250 mls/hr IV Q12H [facility] Last Admin: 03/01/20 11:11 Dose: 250 mls/hr Documented by: Morphine Sulfate (Morphine) 2 mg IVPUSH Q4H PRN PRN Reason: Pain Last Admin: 02/27/20 22:04 Dose: 2 mg Documented by: Ondansetron HCl (Zofran) 4 mg IVPUSH Q8H PRN PRN Reason: Nausea/Vomiting Last Admin: 02/27/20 17:27 Dose: 4 mg Documented by: Potassium Chloride (Potassium Chloride) 20 meq PO BID [facility] Last Admin: 03/01/20 08:44 Dose: 20 meq Documented by: Discontinued Medications Acetaminophen (Tylenol) 650 mg PO Q4H PRN PRN Reason: Pain (Mild 1-3)/fever Albuterol (Proventil Neb Soln) 2.5 mg NEB ONETIME PRN PRN Reason: Wheezing Atropine Sulfate (Atropine 0.1 Mg/Ml) 0.5 mg IVPUSH ASDIRECTED PRN PRN Reason: Hypo-perfusion Atropine Sulfate (Atropine 0.1 Mg/Ml) 1 mg IVPUSH ASDIRECTED PRN PRN Reason: Hypo-Perfusion Bupivacaine HCl (Sensorcaine-Mpf 0.25%) Confirm Administered Dose 10 ml .ROUTE .STK-MED ONE Stop: 02/29/20 15:43 Bupivacaine HCl (Sensorcaine-Mpf 0.5%) Confirm Administered Dose 10 ml .ROUTE .STK-MED ONE Stop: 02/29/20 15:43 Dextrose/Water (Dextrose 50% In Water) 50 ml IVPUSH ASDIRECTED PRN PRN Reason: Hypoglycemia Epinephrine HCl (Epinephrine 1:10,000) 1 mg IVPUSH ASDIRECTED PRN PRN Reason: ACLS Guidelines Fentanyl (Sublimaze) Confirm Administered Dose 100 mcg .ROUTE .STK-MED ONE Stop: 02/29/20 16:28 Fentanyl (Sublimaze) Confirm Administered Dose 100 mcg .ROUTE .STK-MED ONE Stop: 02/29/20 16:36 Fentanyl (Sublimaze) 50 mcg IVPUSH Q5M PRN PRN Reason: Pain Last Admin: 02/29/20 17:27 Dose: 50 mcg Documented by: Hydromorphone HCl (Dilaudid) 0.5 mg IVPUSH .Q5MIN PRN PRN Reason: Pain (severe 7-10) Sodium Chloride (Normal Saline) 1,000 mls @ 999 mls/hr IV BOLUS ONE Stop: 02/27/20 11:17 Last Admin: 02/27/20 10:43 Dose: 999 mls/hr Documented by: Vancomycin HCl 1.25 gm/ Sodium (Chloride) 250 mls @ 167 mls/hr IV ONETIME ONE Stop: 02/27/20 11:48 Last Admin: 02/27/20 10:42 Dose: Not Given Documented by: Vancomycin HCl 1.5 gm/ Sodium (Chloride) 500 mls @ 333 mls/hr IV NOW STA Stop: 02/27/20 11:50 Last Admin: 02/27/20 10:42 Dose: Not Given Documented by: Ampicillin Sodium/Sulbactam (Sodium 3 gm/ Sodium Chloride) 100 mls @ 200 mls/hr IV ONETIME ONE Stop: 02/27/20 10:54 Last Admin: 02/27/20 11:28 Dose: 200 mls/hr Documented by: Vancomycin HCl 1.5 gm/ Premix 300 mls @ 199.815 mls/hr IV NOW STA Stop: 02/27/20 11:59 Last Admin: 02/27/20 10:45 Dose: 199.815 mls/hr Documented by: Vancomycin HCl 1 gm/ Sodium (Chloride) 250 mls @ 250 mls/hr IV Q12H [facility] Last Admin: 02/28/20 23:14 Dose: 250 mls/hr Documented by: Lactated Ringer's (Ringers, Lactated) 1,000 mls @ 125 mls/hr IV ASDIRECTED [facility] Last Admin: 03/01/20 04:29 Dose: 125 mls/hr Documented by: Bupivacaine HCl/Epinephrine Bitart (Sensorc Mpf 0.25%-Epi [id number]) Confirm Administered Dose 30 mls @ as directed .ROUTE .STK-MED ONE Stop: 02/29/20 15:43 Acetaminophen (Ofirmev) Confirm Administered Dose 100 mls @ as directed .ROUTE .STK-MED ONE Stop: 02/29/20 16:13 Iopamidol (Isovue Multipack-370 (76%)) 100 ml IVPUSH ONETIME ONE Stop: 02/27/20 12:22 Last Admin: 02/27/20 12:22 Dose: 100 ml Documented by: Ketorolac Tromethamine (Toradol) Confirm Administered Dose 30 mg .ROUTE .STK-MED ONE Stop: 02/29/20 17:26 Lidocaine HCl (Xylocaine-Mpf 1%) Confirm Administered Dose 5 ml .ROUTE .STK-MED ONE Stop: 02/29/20 16:19 Midazolam HCl (Versed 1 Mg/Ml) Confirm Administered Dose 2 mg .ROUTE .STK-MED ONE Stop: 02/29/20 16:14 Morphine Sulfate (Morphine) 2 mg IVPUSH ONETIME ONE Stop: 02/27/20 10:21 Last Admin: 02/27/20 10:45 Dose: 2 mg Documented by: Naloxone HCl (Narcan) 0.1 mg IVPUSH ASDIRECTED PRN PRN Reason: Respiratory Depression Ondansetron HCl (Zofran) 4 mg IVPUSH ONETIME ONE Stop: 02/27/20 10:18 Last Admin: 02/27/20 10:45 Dose: 4 mg Documented by: Ondansetron HCl (Zofran) 4 mg IVPUSH ONETIME PRN PRN Reason: Nausea/Vomiting Potassium Chloride (Klor-Con M20) 20 meq PO ONETIME ONE Stop: 02/27/20 11:36 Last Admin: 02/27/20 12:51 Dose: 20 meq Documented by: Potassium Chloride (Klor-Con M20) 40 meq PO ONETIME ONE Stop: 02/27/20 16:04 Last Admin: 02/27/20 16:53 Dose: 40 meq Documented by: Propofol (Diprivan 20 Ml) Confirm Administered Dose 200 mg .ROUTE .STK-MED ONE Stop: 02/29/20 14:09 Sepsis Event Note - Focused Exam Vital Signs: Vital Signs Temp Pulse Resp BP Pulse Ox 03/01/20 09:00 36.7 C 80 16 134/67 97 03/01/20 03:55 36.8 C 68 17 161/75 H 93 L - My Orders Last 24 Hours: My Active Orders 03/01/20 Breakfast Regular Diet [DIET] 03/02/20 10:30 VANCOMYCIN TROUGH [CHEM] Routine - Plan Plan:: I have seen and evaluated the patient and agree with the residents note unless specified in my note
[2020-02-29] MEDS: fentaNYL 100 MCG/2 ML SDV IVPUSH PRN ×3 (17:00→17:27)
[2020-02-29] MEDS ORDERED: Ketorolac 30 MG/ML SDV ONE (17:25)
--- NOTE | 2020-02-29 17:51 | PCM.POSTAN ---
POST ANESTHESIA ASSESSMENT - MENTAL STATUS Mental Status: Alert, Oriented - VITAL SIGNS Vital Signs: Last Vital Signs Temp 35.2 C L 02/29/20 16:43 Pulse 68 02/29/20 17:43 Resp 14 02/29/20 17:43 BP 143/77 H 02/29/20 17:43 Pulse Ox 96 02/29/20 17:43 - RESPIRATORY Respiratory Status: Respiratory Rate WNL, Airway Patent, O2 Saturation Stable - CARDIOVASCULAR CV Status: Pulse Rate WNL, Blood Pressure Stable - GASTROINTESTINAL GI Status: No Symptoms - PAIN Pain Score: 3 Free Text/Narrative:: Toradol 30 mg ivp given by me at 1727 - POST OP HYDRATION Hydration Status: Adequate & Stable - OBSERVATIONS Free Text/Narrative:: The patient tolerated the procedure well. There were no apparent anesthetic complications at this time. Discharge to floor per criteria.
[2020-03-01] MEDS: Lactated Ringers 1,000 ML IV SCH (04:29)
[2020-03-01] MEDS: Acetaminophen 325 MG Tab PO PRN (04:42)
[2020-03-01] MEDS: Piperacillin/Tazobactam 3.375 GM in Sodium Chloride 0.9% 100 ML IV SCH ×4 (04:44→22:24)
--- NOTE | 2020-03-01 06:10 | PCM48HPAN ---
Post Anesthesia Note - EVALUATION WITHIN 48HRS OF ANESTHETIC Vital Signs in Normal Range: Yes Patient Participated in Evaluation: Yes Respiratory Function Stable: Yes Airway Patent: Yes Cardiovascular Function Stable: Yes Hydration Status Stable: Yes Pain Control Satisfactory: Yes Nausea and Vomiting Control Satisfactory: Yes Mental Status Recovered: Yes Vital Signs: Last Vital Signs Temp 36.8 C 03/01/20 03:55 Pulse 68 03/01/20 03:55 Resp 17 03/01/20 03:55 BP 161/75 H 03/01/20 03:55 Pulse Ox 93 L 03/01/20 03:55 - COMMENTS/OBSERVATIONS Free Text/Narrative:: The patient has no complaints at this time, and there were no apparent anesthetic complications. Discharge per primary service.
[2020-03-01 06:23] LABS: BLOOD UREA NITROGEN,BUN 6 mg/dL (7.0-18.0); CARBON DIOXIDE,CO2 26.3 mmol/L (21.0-32.0); CHLORIDE,CL 106 mmol/L (98-107); GLUCOSE RANDOM 92 mg/dL (74-106); POTASSIUM,K 3.4 mmol/L (3.5-5.1); SODIUM,NA 142 mmol/L (136-145)
--- NOTE | 2020-03-01 07:12 | OR ---
SURGEON: Chucho Preston MD DATE OF PROCEDURE: 02/29/2020 PREOPERATIVE DIAGNOSIS: Right labial abscess. POSTOPERATIVE DIAGNOSIS: Right labial abscess. OPERATION PERFORMED: I and D of left labial abscess. PRIMARY SURGEON: Chucho Preston MD. INDUSTRIAL ENGINEERING DIRECTOR: OR dre. ANESTHESIA: LMA, Dr. Martinez. ESTIMATED BLOOD LOSS: 100 mL. COMPLICATIONS: None. FINDING: Labial abscess. INDICATIONS FOR SURGERY: The patient admitted with a cellulitis of the right labia, later on developed labial abscess. I was consulted, and I advised that abscess to be I and D'd. PROCEDURE IN DETAIL: The patient was brought to the OR, properly identified, and after adequate level of anesthesia, patient was prepped and draped in sterile fashion as usual. At the area where the most fluctuation, an 11 blade was used to open the skin, and then, copious amount of pus was drained from that area, and after that, all the trabeculation was broken down with fingers and thorough irrigation of the abscess cavity was done making sure all the pus is removed. Prior to doing that, Gram stain and aerobic and anaerobic cultures were collected. After that, 1-inch Iodoform packing was placed into place and the procedure ended. Instrument and sponge count was correct. The patient tolerated the procedure well, went to recovery room in stable general condition. NOEL / NASEEM /[id number]
[2020-03-01] MEDS: Potassium Chloride 10% 20 MEQ/15 ML Soln 30 ML UD Cup PO SCH ×2 (08:44→21:18)
[2020-03-01] MEDS: Docusate Sodium 100 MG Cap PO SCH (08:45)
--- NOTE | 2020-03-01 12:18 | PCM.PN ---
<Rodolfo Zabala - Last Filed: 03/01/20 12:18> - General Info Date of Service: 03/01/20 Subjective Update: Patient states that she has less pain after her I&D yesterday. Nausea has improved and patient states increased appetite. Denies fever, chills, nausea, vomiting. - Review of Systems General: Denies: Fever, Chills Pulmonary: Denies: Shortness of Breath, Pleuritic Chest Pain Cardiovascular: Denies: Chest Pain, Palpitations Gastrointestinal: Denies: Abdominal Pain, Decreased Appetite, Nausea, Vomiting Musculoskeletal: Denies: Leg Pain Neurological: Denies: Dizziness, Headache - Patient Data Vitals - Most Recent: Last Vital Signs Temp 98.1 F 03/01/20 09:00 Pulse 80 03/01/20 09:00 Resp 16 03/01/20 09:00 BP 134/67 03/01/20 09:00 Pulse Ox 97 03/01/20 09:00 Weight - Most Recent: 80.921 kg I&O - Last 24 Hours: Intake & Output 02/29/20 03/01/20 03/01/20 22:59 06:59 14:59 Intake Total 1450 300 Output Total 750 1250 Balance 700 -950 Lab Results Last 24 Hours: Laboratory Results - last 24 hr 03/01/20 03/01/20 Range/Units 05:07 05:07 WBC 6.67 (4.0-11.0) K/uL RBC 3.58 L (4.30-5.90) M/uL Hgb 10.1 L (12.0-16.0) g/dL Hct 32.1 L (36.0-46.0) % MCV 89.7 (80.0-98.0) fL MCH 28.2 (27.0-32.0) pg MCHC 31.5 (31.0-37.0) g/dL RDW Std Deviation 46.7 (28.0-62.0) fl RDW Coeff of John 14 (11.0-15.0) % Plt Count 246 (150-400) K/uL MPV 9.10 (7.40-12.00) fL Add Manual Diff YES Neutrophils % (Manual) 70 (48.0-80.0) % Band Neutrophils % 12 % Lymphocytes % (Manual) 17 (16.0-40.0) % Monocytes % (Manual) 1 (0.0-15.0) % Nucleated RBC % 0.0 /100WBC Absolute Seg Neuts 4.7 (1.4-5.7) Band Neutrophils # 0.8 Lymphocytes # (Manual) 1.1 (0.6-2.4) Monocytes # (Manual) 0.1 (0.0-0.8) Nucleated RBCs # 0 K/uL Sodium 142 (136-145) mmol/L Potassium 3.4 L (3.5-5.1) mmol/L Chloride 106 (98-107) mmol/L Carbon Dioxide 26.3 (21.0-32.0) mmol/L BUN 6 L (7.0-18.0) mg/dL Creatinine 0.9 (0.6-1.0) mg/dL Est Cr Clr Drug Dosing 65.34 mL/min Estimated GFR (MDRD) > 60.0 ml/min Glucose 92 (74-106) mg/dL Calcium 8.3 L (8.5-10.1) mg/dL Antonio Results Last 24 Hours: Microbiology 02/27/20 09:50 Aerobic Blood Culture - Preliminary Blood - Venous - Lab Draw NO GROWTH AFTER 3 DAYS Anaerobic Blood Culture - Preliminary NO GROWTH AFTER 3 DAYS 02/27/20 10:35 Aerobic Blood Culture - Preliminary Blood - Venous NO GROWTH AFTER 3 DAYS Anaerobic Blood Culture - Preliminary NO GROWTH AFTER 3 DAYS 02/29/20 16:27 Gram Stain - Final Labia - Right Wound Culture - Preliminary 02/28/20 15:10 Wound Culture - Final Labia - Right (Mrsa) Staphylococcus Aureus Skin Bette Med Orders - Current: Current Medications Acetaminophen (Tylenol) 650 mg PO Q4H PRN PRN Reason: Pain Last Admin: 03/01/20 04:42 Dose: 650 mg Documented by: Docusate Sodium (Colace) 200 mg PO DAILY [facility] [place] Last Admin: 03/01/20 08:45 Dose: 200 mg Documented by: Enoxaparin Sodium (Lovenox) 40 mg SUBCUT Q24H [facility] [place] Last Admin: 02/29/20 15:19 Dose: Not Given Documented by: Piperacillin Sod/Tazobactam (Sod 3.375 gm/ Sodium Chloride) 100 mls @ 200 mls/hr IV Q6H [facility] [place] Last Admin: 11/19/20 10:30 Dose: 200 mls/hr Documented by: Vancomycin HCl 1.25 gm/ Sodium (Chloride) 250 mls @ 250 mls/hr IV Q12H [facility] Last Admin: 03/01/20 11:11 Dose: 250 mls/hr Documented by: Morphine Sulfate (Morphine) 2 mg IVPUSH Q4H PRN PRN Reason: Pain Last Admin: 02/27/20 22:04 Dose: 2 mg Documented by: Ondansetron HCl (Zofran) 4 mg IVPUSH Q8H PRN PRN Reason: Nausea/Vomiting Last Admin: 02/27/20 17:27 Dose: 4 mg Documented by: Potassium Chloride (Potassium Chloride) 20 meq PO BID [facility] Last Admin: 03/01/20 08:44 Dose: 20 meq Documented by: Discontinued Medications Acetaminophen (Tylenol) 650 mg PO Q4H PRN PRN Reason: Pain (Mild 1-3)/fever Albuterol (Proventil Neb Soln) 2.5 mg NEB ONETIME PRN PRN Reason: Wheezing Atropine Sulfate (Atropine 0.1 Mg/Ml) 0.5 mg IVPUSH ASDIRECTED PRN PRN Reason: Hypo-perfusion Atropine Sulfate (Atropine 0.1 Mg/Ml) 1 mg IVPUSH ASDIRECTED PRN PRN Reason: Hypo-Perfusion Bupivacaine HCl (Sensorcaine-Mpf 0.25%) Confirm Administered Dose 10 ml .ROUTE .STK-MED ONE Stop: 02/29/20 15:43 Bupivacaine HCl (Sensorcaine-Mpf 0.5%) Confirm Administered Dose 10 ml .ROUTE .STK-MED ONE Stop: 02/29/20 15:43 Dextrose/Water (Dextrose 50% In Water) 50 ml IVPUSH ASDIRECTED PRN PRN Reason: Hypoglycemia Epinephrine HCl (Epinephrine 1:10,000) 1 mg IVPUSH ASDIRECTED PRN PRN Reason: ACLS Guidelines Fentanyl (Sublimaze) Confirm Administered Dose 100 mcg .ROUTE .STK-MED ONE Stop: 02/29/20 16:28 Fentanyl (Sublimaze) Confirm Administered Dose 100 mcg .ROUTE .STK-MED ONE Stop: 02/29/20 16:36 Fentanyl (Sublimaze) 50 mcg IVPUSH Q5M PRN PRN Reason: Pain Last Admin: 02/29/20 17:27 Dose: 50 mcg Documented by: Hydromorphone HCl (Dilaudid) 0.5 mg IVPUSH .Q5MIN PRN PRN Reason: Pain (severe 7-10) Sodium Chloride (Normal Saline) 1,000 mls @ 999 mls/hr IV BOLUS ONE Stop: 02/27/20 11:17 Last Admin: 02/27/20 10:43 Dose: 999 mls/hr Documented by: Vancomycin HCl 1.25 gm/ Sodium (Chloride) 250 mls @ 167 mls/hr IV ONETIME ONE Stop: 02/27/20 11:48 Last Admin: 02/27/20 10:42 Dose: Not Given Documented by: Vancomycin HCl 1.5 gm/ Sodium (Chloride) 500 mls @ 333 mls/hr IV NOW STA Stop: 02/27/20 11:50 Last Admin: 02/27/20 10:42 Dose: Not Given Documented by: Ampicillin Sodium/Sulbactam (Sodium 3 gm/ Sodium Chloride) 100 mls @ 200 mls/hr IV ONETIME ONE Stop: 02/27/20 10:54 Last Admin: 02/27/20 11:28 Dose: 200 mls/hr Documented by: Vancomycin HCl 1.5 gm/ Premix 300 mls @ 199.815 mls/hr IV NOW STA Stop: 02/27/20 11:59 Last Admin: 02/27/20 10:45 Dose: 199.815 mls/hr Documented by: Vancomycin HCl 1 gm/ Sodium (Chloride) 250 mls @ 250 mls/hr IV Q12H [facility] [place] Last Admin: 02/28/20 23:14 Dose: 250 mls/hr Documented by: Lactated Ringer's (Ringers, Lactated) 1,000 mls @ 125 mls/hr IV ASDIRECTED [facility] [place] Last Admin: 03/01/20 04:29 Dose: 125 mls/hr Documented by: Bupivacaine HCl/Epinephrine Bitart (Sensorc Mpf 0.25%-Epi [id number]) Confirm Administered Dose 30 mls @ as directed .ROUTE .STK-MED ONE Stop: 02/29/20 15:43 Acetaminophen (Ofirmev) Confirm Administered Dose 100 mls @ as directed .ROUTE .STK-MED ONE Stop: 02/29/20 16:13 Iopamidol (Isovue Multipack-370 (76%)) 100 ml IVPUSH ONETIME ONE Stop: 02/27/20 12:22 Last Admin: 02/27/20 12:22 Dose: 100 ml Documented by: Ketorolac Tromethamine (Toradol) Confirm Administered Dose 30 mg .ROUTE .STK-MED ONE Stop: 02/29/20 17:26 Lidocaine HCl (Xylocaine-Mpf 1%) Confirm Administered Dose 5 ml .ROUTE .STK-MED ONE Stop: 02/29/20 16:19 Midazolam HCl (Versed 1 Mg/Ml) Confirm Administered Dose 2 mg .ROUTE .STK-MED ONE Stop: 02/29/20 16:14 Morphine Sulfate (Morphine) 2 mg IVPUSH ONETIME ONE Stop: 02/27/20 10:21 Last Admin: 02/27/20 10:45 Dose: 2 mg Documented by: Naloxone HCl (Narcan) 0.1 mg IVPUSH ASDIRECTED PRN PRN Reason: Respiratory Depression Ondansetron HCl (Zofran) 4 mg IVPUSH ONETIME ONE Stop: 02/27/20 10:18 Last Admin: 02/27/20 10:45 Dose: 4 mg Documented by: Ondansetron HCl (Zofran) 4 mg IVPUSH ONETIME PRN PRN Reason: Nausea/Vomiting Potassium Chloride (Klor-Con M20) 20 meq PO ONETIME ONE Stop: 02/27/20 11:36 Last Admin: 02/27/20 12:51 Dose: 20 meq Documented by: Potassium Chloride (Klor-Con M20) 40 meq PO ONETIME ONE Stop: 02/27/20 16:04 Last Admin: 02/27/20 16:53 Dose: 40 meq Documented by: Propofol (Diprivan 20 Ml) Confirm Administered Dose 200 mg .ROUTE .STK-MED ONE Stop: 02/29/20 14:09 - Exam General: Alert, Oriented Lungs: Clear to Auscultation, Normal Respiratory Effort Cardiovascular: Regular Rate, Regular Rhythm GI/Abdominal Exam: Normal Bowel Sounds, Soft, Non-Tender Extremities: No Pedal Edema Wound/Incisions: Drainage, Erythema Improving Sepsis Event Note - Evaluation Sepsis Screening Result: No Definite Risk - Focused Exam Vital Signs: Vital Signs Temp Pulse Resp BP Pulse Ox 03/01/20 09:00 98.1 F 80 16 134/67 97 03/01/20 03:55 98.3 F 68 17 161/75 H 93 L - Problem List Review Problem List Initiated/Reviewed/Updated: Yes - My Orders Last 24 Hours: My Active Orders 03/01/20 09:00 Potassium Chloride 20 meq PO BID - Plan Plan:: Cellulitis of right groin, right perianal area, right labia majora abscess- Patient had I&D performed yesterday on her R labia abscess. Cellulitis has improved overnight. Continue Vancomycin Q12, Zosyn 3gm Q6 till D/C. Zofran 4mg PRN for Nausea/Vomiting, Lovenox 40mg daily, Morphine 2mg PRN Q4 HR, Tylenol PRN Pain <Jair,Hooria - Last Filed: 03/01/20 13:08> - Patient Data Vitals - Most Recent: Last Vital Signs Temp 36.7 C 03/01/20 09:00 Pulse 80 03/01/20 09:00 Resp 16 03/01/20 09:00 BP 134/67 03/01/20 09:00 Pulse Ox 97 03/01/20 09:00 I&O - Last 24 Hours: Intake & Output 02/29/20 03/01/20 03/01/20 22:59 06:59 14:59 Intake Total 1450 300 Output Total 750 1250 Balance 700 -950 Lab Results Last 24 Hours: Laboratory Results - last 24 hr 03/01/20 03/01/20 Range/Units 05:07 05:07 WBC 6.67 (4.0-11.0) K/uL RBC 3.58 L (4.30-5.90) M/uL Hgb 10.1 L (12.0-16.0) g/dL Hct 32.1 L (36.0-46.0) % MCV 89.7 (80.0-98.0) fL MCH 28.2 (27.0-32.0) pg MCHC 31.5 (31.0-37.0) g/dL RDW Std Deviation 46.7 (28.0-62.0) fl RDW Coeff of John 14 (11.0-15.0) % Plt Count 246 (150-400) K/uL MPV 9.10 (7.40-12.00) fL Add Manual Diff YES Neutrophils % (Manual) 70 (48.0-80.0) % Band Neutrophils % 12 % Lymphocytes % (Manual) 17 (16.0-40.0) % Monocytes % (Manual) 1 (0.0-15.0) % Nucleated RBC % 0.0 /100WBC Absolute Seg Neuts 4.7 (1.4-5.7) Band Neutrophils # 0.8 Lymphocytes # (Manual) 1.1 (0.6-2.4) Monocytes # (Manual) 0.1 (0.0-0.8) Nucleated RBCs # 0 K/uL Sodium 142 (136-145) mmol/L Potassium 3.4 L (3.5-5.1) mmol/L Chloride 106 (98-107) mmol/L Carbon Dioxide 26.3 (21.0-32.0) mmol/L BUN 6 L (7.0-18.0) mg/dL Creatinine 0.9 (0.6-1.0) mg/dL Est Cr Clr Drug Dosing 65.34 mL/min Estimated GFR (MDRD) > 60.0 ml/min Glucose 92 (74-106) mg/dL Calcium 8.3 L (8.5-10.1) mg/dL Antonio Results Last 24 Hours: Microbiology 02/27/20 09:50 Aerobic Blood Culture - Preliminary Blood - Venous - Lab Draw NO GROWTH AFTER 3 DAYS Anaerobic Blood Culture - Preliminary NO GROWTH AFTER 3 DAYS 02/27/20 10:35 Aerobic Blood Culture - Preliminary Blood - Venous NO GROWTH AFTER 3 DAYS Anaerobic Blood Culture - Preliminary NO GROWTH AFTER 3 DAYS 02/29/20 16:27 Gram Stain - Final Labia - Right Wound Culture - Preliminary 02/28/20 15:10 Wound Culture - Final Labia - Right (Mrsa) Staphylococcus Aureus Skin Bette Med Orders - Current: Current Medications Acetaminophen (Tylenol) 650 mg PO Q4H PRN PRN Reason: Pain Last Admin: 03/01/20 04:42 Dose: 650 mg Documented by: Docusate Sodium (Colace) 200 mg PO DAILY [facility] [place] Last Admin: 03/01/20 08:45 Dose: 200 mg Documented by: Enoxaparin Sodium (Lovenox) 40 mg SUBCUT Q24H [facility] [place] Last Admin: 02/29/20 15:19 Dose: Not Given Documented by: Piperacillin Sod/Tazobactam (Sod 3.375 gm/ Sodium Chloride) 100 mls @ 200 mls/hr IV Q6H [facility] [place] Last Admin: 03/01/20 10:30 Dose: 200 mls/hr Documented by: Vancomycin HCl 1.25 gm/ Sodium (Chloride) 250 mls @ 250 mls/hr IV Q12H [facility] [place] Last Admin: 03/01/20 11:11 Dose: 250 mls/hr Documented by: Morphine Sulfate (Morphine) 2 mg IVPUSH Q4H PRN PRN Reason: Pain Last Admin: 02/27/20 22:04 Dose: 2 mg Documented by: Ondansetron HCl (Zofran) 4 mg IVPUSH Q8H PRN PRN Reason: Nausea/Vomiting Last Admin: 02/27/20 17:27 Dose: 4 mg Documented by: Potassium Chloride (Potassium Chloride) 20 meq PO BID [facility] [place] Last Admin: 03/01/20 08:44 Dose: 20 meq Documented by: Discontinued Medications Acetaminophen (Tylenol) 650 mg PO Q4H PRN PRN Reason: Pain (Mild 1-3)/fever Albuterol (Proventil Neb Soln) 2.5 mg NEB ONETIME PRN PRN Reason: Wheezing Atropine Sulfate (Atropine 0.1 Mg/Ml) 0.5 mg IVPUSH ASDIRECTED PRN PRN Reason: Hypo-perfusion Atropine Sulfate (Atropine 0.1 Mg/Ml) 1 mg IVPUSH ASDIRECTED PRN PRN Reason: Hypo-Perfusion Bupivacaine HCl (Sensorcaine-Mpf 0.25%) Confirm Administered Dose 10 ml .ROUTE .STK-MED ONE Stop: 02/29/20 15:43 Bupivacaine HCl (Sensorcaine-Mpf 0.5%) Confirm Administered Dose 10 ml .ROUTE .STK-MED ONE Stop: 02/29/20 15:43 Dextrose/Water (Dextrose 50% In Water) 50 ml IVPUSH ASDIRECTED PRN PRN Reason: Hypoglycemia Epinephrine HCl (Epinephrine 1:10,000) 1 mg IVPUSH ASDIRECTED PRN PRN Reason: ACLS Guidelines Fentanyl (Sublimaze) Confirm Administered Dose 100 mcg .ROUTE .STK-MED ONE Stop: 02/29/20 16:28 Fentanyl (Sublimaze) Confirm Administered Dose 100 mcg .ROUTE .STK-MED ONE Stop: 02/29/20 16:36 Fentanyl (Sublimaze) 50 mcg IVPUSH Q5M PRN PRN Reason: Pain Last Admin: 02/29/20 17:27 Dose: 50 mcg Documented by: Hydromorphone HCl (Dilaudid) 0.5 mg IVPUSH .Q5MIN PRN PRN Reason: Pain (severe 7-10) Sodium Chloride (Normal Saline) 1,000 mls @ 999 mls/hr IV BOLUS ONE Stop: 02/27/20 11:17 Last Admin: 02/27/20 10:43 Dose: 999 mls/hr Documented by: Vancomycin HCl 1.25 gm/ Sodium (Chloride) 250 mls @ 167 mls/hr IV ONETIME ONE Stop: 02/27/20 11:48 Last Admin: 02/27/20 10:42 Dose: Not Given Documented by: Vancomycin HCl 1.5 gm/ Sodium (Chloride) 500 mls @ 333 mls/hr IV NOW STA Stop: 02/27/20 11:50 Last Admin: 02/27/20 10:42 Dose: Not Given Documented by: Ampicillin Sodium/Sulbactam (Sodium 3 gm/ Sodium Chloride) 100 mls @ 200 mls/hr IV ONETIME ONE Stop: 02/27/20 10:54 Last Admin: 02/27/20 11:28 Dose: 200 mls/hr Documented by: Vancomycin HCl 1.5 gm/ Premix 300 mls @ 199.815 mls/hr IV NOW STA Stop: 02/27/20 11:59 Last Admin: 02/27/20 10:45 Dose: 199.815 mls/hr Documented by: Vancomycin HCl 1 gm/ Sodium (Chloride) 250 mls @ 250 mls/hr IV Q12H [facility] [place] Last Admin: 02/28/20 23:14 Dose: 250 mls/hr Documented by: Lactated Ringer's (Ringers, Lactated) 1,000 mls @ 125 mls/hr IV ASDIRECTED [facility] [place] Last Admin: 03/01/20 04:29 Dose: 125 mls/hr Documented by: Bupivacaine HCl/Epinephrine Bitart (Sensorc Mpf 0.25%-Epi [id number]) Confirm Administered Dose 30 mls @ as directed .ROUTE .STK-MED ONE Stop: 02/29/20 15:43 Acetaminophen (Ofirmev) Confirm Administered Dose 100 mls @ as directed .ROUTE .STK-MED ONE Stop: 02/29/20 16:13 Iopamidol (Isovue Multipack-370 (76%)) 100 ml IVPUSH ONETIME ONE Stop: 02/27/20 12:22 Last Admin: 02/27/20 12:22 Dose: 100 ml Documented by: Ketorolac Tromethamine (Toradol) Confirm Administered Dose 30 mg .ROUTE .STK-MED ONE Stop: 02/29/20 17:26 Lidocaine HCl (Xylocaine-Mpf 1%) Confirm Administered Dose 5 ml .ROUTE .STK-MED ONE Stop: 02/29/20 16:19 Midazolam HCl (Versed 1 Mg/Ml) Confirm Administered Dose 2 mg .ROUTE .STK-MED ONE Stop: 02/29/20 16:14 Morphine Sulfate (Morphine) 2 mg IVPUSH ONETIME ONE Stop: 02/27/20 10:21 Last Admin: 02/27/20 10:45 Dose: 2 mg Documented by: Naloxone HCl (Narcan) 0.1 mg IVPUSH ASDIRECTED PRN PRN Reason: Respiratory Depression Ondansetron HCl (Zofran) 4 mg IVPUSH ONETIME ONE Stop: 02/27/20 10:18 Last Admin: 02/27/20 10:45 Dose: 4 mg Documented by: Ondansetron HCl (Zofran) 4 mg IVPUSH ONETIME PRN PRN Reason: Nausea/Vomiting Potassium Chloride (Klor-Con M20) 20 meq PO ONETIME ONE Stop: 02/27/20 11:36 Last Admin: 02/27/20 12:51 Dose: 20 meq Documented by: Potassium Chloride (Klor-Con M20) 40 meq PO ONETIME ONE Stop: 02/27/20 16:04 Last Admin: 02/27/20 16:53 Dose: 40 meq Documented by: Propofol (Diprivan 20 Ml) Confirm Administered Dose 200 mg .ROUTE .STK-MED ONE Stop: 02/29/20 14:09 Sepsis Event Note - Focused Exam Vital Signs: Vital Signs Temp Pulse Resp BP Pulse Ox 03/01/20 09:00 36.7 C 80 16 134/67 97 03/01/20 03:55 36.8 C 68 17 161/75 H 93 L - My Orders Last 24 Hours: My Active Orders 03/01/20 Breakfast Regular Diet [DIET] 03/02/20 10:30 VANCOMYCIN TROUGH [CHEM] Routine - Plan Plan:: I have seen and evaluated the patient and agree with the residents note unless specified in my note
--- NOTE | 2020-03-01 15:20 | PN ---
SUBJECTIVE: The patient says she is feeling a lot better today. She notes the tightness and erythema in her groin and labia has greatly decreased since having the incision and drainage of labial abscess by Dr. Preston yesterday. Dr. Preston's note does indicate quite a bit of purulent material was drained from the abscess. OBJECTIVE: GENERAL: The patient is sitting comfortably in her bed. She is alert and oriented. VITAL SIGNS: Temperature is 98.1, pulse is 80, blood pressure is 135/67, saturating 95% on room air. ABDOMEN: Soft, nontender, nondistended. GENITOURINARY: Right groin erythema has greatly decreased from yesterday. Area is much softer. Still has some induration. No fluctuation, but again looks much better. Labia is covered with dressing. LABORATORY DATA: Microbiology cultures did show MRSA growing from right labia. ASSESSMENT AND PLAN: This is a pleasant 54-year-old female with a right labial abscess. This was I and D'd by [facility] [facility] [facility] yesterday. She did have some cellulitis and induration going up into her groin. This is a lot better today after drainage of the abscess. I did go over with the patient that it looks like the cellulitis and induration are resolving. The patient should continue on her antibiotics as per Medicine and [facility] [facility]. Did discuss the patient with the Medicine team. Surgery will sign off. However, please call if there are any changes or if there are any questions. SABRINA / NASEEM /[id number]
[2020-03-01] MEDS: Enoxaparin 40 MG/0.4 ML Syringe SUBCUT SCH (16:23)
[2020-03-02] MEDS: Piperacillin/Tazobactam 3.375 GM in Sodium Chloride 0.9% 100 ML IV SCH ×2 (04:06→10:22)
[2020-03-02 06:16] LABS: POTASSIUM,K 3.5 mmol/L (3.5-5.1)
[2020-03-02] MEDS: Potassium Chloride 10% 20 MEQ/15 ML Soln 30 ML UD Cup PO SCH (08:38)
[2020-03-02] MEDS: Docusate Sodium 100 MG Cap PO SCH (08:40)
--- NOTE | 2020-03-02 09:21 | PCM.SURGPN ---
- General Info Date of Service: 03/02/20 POD#: 2 Functional Status: Reports: Pain Controlled - Review of Systems General: Reports: No Symptoms HEENT: Reports: No Symptoms Pulmonary: Reports: No Symptoms Cardiovascular: Reports: No Symptoms Gastrointestinal: Reports: No Symptoms Genitourinary: Reports: No Symptoms Musculoskeletal: Reports: No Symptoms Skin: Reports: No Symptoms Neurological: Reports: No Symptoms Psychiatric: Reports: No Symptoms - Patient Data Vitals - Most Recent: Last Vital Signs Temp 36.1 C 03/02/20 07:10 Pulse 64 03/02/20 07:10 Resp 15 03/02/20 07:10 BP 151/72 H 03/02/20 07:10 Pulse Ox 94 L 03/02/20 07:10 Weight - Most Recent: 80.921 kg I&O - Last 24 Hours: Intake & Output 03/01/20 03/02/20 03/02/20 22:59 06:59 14:59 Intake Total 3019 500 Output Total 1900 1300 Balance 1119 -800 Lab Results Last 24 Hrs: Laboratory Results - last 24 hr 03/02/20 03/02/20 Range/Units 05:25 05:25 WBC 6.74 (4.0-11.0) K/uL RBC 3.87 L (4.30-5.90) M/uL Hgb 10.9 L (12.0-16.0) g/dL Hct 34.7 L (36.0-46.0) % MCV 89.7 (80.0-98.0) fL MCH 28.2 (27.0-32.0) pg MCHC 31.4 (31.0-37.0) g/dL RDW Std Deviation 46.4 (28.0-62.0) fl RDW Coeff of John 14 (11.0-15.0) % Plt Count 252 (150-400) K/uL MPV 9.10 (7.40-12.00) fL Neut % (Auto) 72.6 (48.0-80.0) % Lymph % (Auto) 19.1 (16.0-40.0) % [place] % (Auto) 5.2 (0.0-15.0) % Eos % (Auto) 2.8 (0.0-7.0) % Baso % (Auto) 0.3 (0.0-1.5) % Neut # (Auto) 4.9 (1.4-5.7) K/uL Lymph # (Auto) 1.3 (0.6-2.4) K/uL [place] # (Auto) 0.4 (0.0-0.8) K/uL Eos # (Auto) 0.2 (0.0-0.7) K/uL Baso # (Auto) 0.0 (0.0-0.1) K/uL Nucleated RBC % 0.0 /100WBC Nucleated RBCs # 0 K/uL Sodium 142 (136-145) mmol/L Potassium 3.5 (3.5-5.1) mmol/L Chloride 106 (98-107) mmol/L Carbon Dioxide 26.0 (21.0-32.0) mmol/L BUN 5 L (7.0-18.0) mg/dL Creatinine 1.2 H (0.6-1.0) mg/dL Est Cr Clr Drug Dosing 49.00 mL/min Estimated GFR (MDRD) 46.5 ml/min Glucose 104 (74-106) mg/dL Calcium 8.5 (8.5-10.1) mg/dL Antonio Results Last 24 Hrs: Microbiology 02/29/20 16:27 Gram Stain - Final Labia - Right Wound Culture - Final (Mrsa) Staphylococcus Aureus 02/27/20 09:50 Aerobic Blood Culture - Preliminary Blood - Venous - Lab Draw NO GROWTH AFTER 3 DAYS Anaerobic Blood Culture - Preliminary NO GROWTH AFTER 3 DAYS 02/27/20 10:35 Aerobic Blood Culture - Preliminary Blood - Venous NO GROWTH AFTER 3 DAYS Anaerobic Blood Culture - Preliminary NO GROWTH AFTER 3 DAYS 02/28/20 15:10 Wound Culture - Final Labia - Right (Mrsa) Staphylococcus Aureus Skin Bette Med Orders - Current: Current Medications Acetaminophen (Tylenol) 650 mg PO Q4H PRN PRN Reason: Pain Last Admin: 03/01/20 04:42 Dose: 650 mg Documented by: Docusate Sodium (Colace) 200 mg PO DAILY [facility] Last Admin: 03/02/20 08:40 Dose: Not Given Documented by: Enoxaparin Sodium (Lovenox) 40 mg SUBCUT Q24H [facility] Last Admin: 03/01/20 16:23 Dose: 40 mg Documented by: Piperacillin Sod/Tazobactam (Sod 3.375 gm/ Sodium Chloride) 100 mls @ 200 mls/hr IV Q6H [facility] Last Admin: 03/02/20 04:06 Dose: 200 mls/hr Documented by: Vancomycin HCl 1.25 gm/ Sodium (Chloride) 250 mls @ 250 mls/hr IV Q12H [facility] Last Admin: 03/01/20 23:34 Dose: 250 mls/hr Documented by: Morphine Sulfate (Morphine) 2 mg IVPUSH Q4H PRN PRN Reason: Pain Last Admin: 02/27/20 22:04 Dose: 2 mg Documented by: Ondansetron HCl (Zofran) 4 mg IVPUSH Q8H PRN PRN Reason: Nausea/Vomiting Last Admin: 02/27/20 17:27 Dose: 4 mg Documented by: Potassium Chloride (Potassium Chloride) 20 meq PO BID [facility] Last Admin: 03/02/20 08:38 Dose: 20 meq Documented by: Discontinued Medications Acetaminophen (Tylenol) 650 mg PO Q4H PRN PRN Reason: Pain (Mild 1-3)/fever Albuterol (Proventil Neb Soln) 2.5 mg NEB ONETIME PRN PRN Reason: Wheezing Atropine Sulfate (Atropine 0.1 Mg/Ml) 0.5 mg IVPUSH ASDIRECTED PRN PRN Reason: Hypo-perfusion Atropine Sulfate (Atropine 0.1 Mg/Ml) 1 mg IVPUSH ASDIRECTED PRN PRN Reason: Hypo-Perfusion Bupivacaine HCl (Sensorcaine-Mpf 0.25%) Confirm Administered Dose 10 ml .ROUTE .STK-MED ONE Stop: 02/29/20 15:43 Bupivacaine HCl (Sensorcaine-Mpf 0.5%) Confirm Administered Dose 10 ml .ROUTE .STK-MED ONE Stop: 02/29/20 15:43 Dextrose/Water (Dextrose 50% In Water) 50 ml IVPUSH ASDIRECTED PRN PRN Reason: Hypoglycemia Epinephrine HCl (Epinephrine 1:10,000) 1 mg IVPUSH ASDIRECTED PRN PRN Reason: ACLS Guidelines Fentanyl (Sublimaze) Confirm Administered Dose 100 mcg .ROUTE .STK-MED ONE Stop: 02/29/20 16:28 Fentanyl (Sublimaze) Confirm Administered Dose 100 mcg .ROUTE .STK-MED ONE Stop: 02/29/20 16:36 Fentanyl (Sublimaze) 50 mcg IVPUSH Q5M PRN PRN Reason: Pain Last Admin: 02/29/20 17:27 Dose: 50 mcg Documented by: Hydromorphone HCl (Dilaudid) 0.5 mg IVPUSH .Q5MIN PRN PRN Reason: Pain (severe 7-10) Sodium Chloride (Normal Saline) 1,000 mls @ 999 mls/hr IV BOLUS ONE Stop: 02/27/20 11:17 Last Admin: 02/27/20 10:43 Dose: 999 mls/hr Documented by: Vancomycin HCl 1.25 gm/ Sodium (Chloride) 250 mls @ 167 mls/hr IV ONETIME ONE Stop: 02/27/20 11:48 Last Admin: 02/27/20 10:42 Dose: Not Given Documented by: Vancomycin HCl 1.5 gm/ Sodium (Chloride) 500 mls @ 333 mls/hr IV NOW STA Stop: 02/27/20 11:50 Last Admin: 02/27/20 10:42 Dose: Not Given Documented by: Ampicillin Sodium/Sulbactam (Sodium 3 gm/ Sodium Chloride) 100 mls @ 200 mls/hr IV ONETIME ONE Stop: 02/27/20 10:54 Last Admin: 02/27/20 11:28 Dose: 200 mls/hr Documented by: Vancomycin HCl 1.5 gm/ Premix 300 mls @ 199.815 mls/hr IV NOW STA Stop: 02/27/20 11:59 Last Admin: 02/27/20 10:45 Dose: 199.815 mls/hr Documented by: Vancomycin HCl 1 gm/ Sodium (Chloride) 250 mls @ 250 mls/hr IV Q12H [facility] Last Admin: 02/28/20 23:14 Dose: 250 mls/hr Documented by: Lactated Ringer's (Ringers, Lactated) 1,000 mls @ 125 mls/hr IV ASDIRECTED [facility] Last Admin: 03/01/20 04:29 Dose: 125 mls/hr Documented by: Bupivacaine HCl/Epinephrine Bitart (Sensorc Mpf 0.25%-Epi 1:[id number]) Confirm Administered Dose 30 mls @ as directed .ROUTE .STK-MED ONE Stop: 02/29/20 15:43 Acetaminophen (Ofirmev) Confirm Administered Dose 100 mls @ as directed .ROUTE .STK-MED ONE Stop: 02/29/20 16:13 Iopamidol (Isovue Multipack-370 (76%)) 100 ml IVPUSH ONETIME ONE Stop: 02/27/20 12:22 Last Admin: 02/27/20 12:22 Dose: 100 ml Documented by: Ketorolac Tromethamine (Toradol) Confirm Administered Dose 30 mg .ROUTE .STK-MED ONE Stop: 02/29/20 17:26 Last Admin: 03/01/20 19:44 Dose: Not Given Documented by: Lidocaine HCl (Xylocaine-Mpf 1%) Confirm Administered Dose 5 ml .ROUTE .STK-MED ONE Stop: 02/29/20 16:19 Midazolam HCl (Versed 1 Mg/Ml) Confirm Administered Dose 2 mg .ROUTE .STK-MED ONE Stop: 02/29/20 16:14 Morphine Sulfate (Morphine) 2 mg IVPUSH ONETIME ONE Stop: 02/27/20 10:21 Last Admin: 02/27/20 10:45 Dose: 2 mg Documented by: Naloxone HCl (Narcan) 0.1 mg IVPUSH ASDIRECTED PRN PRN Reason: Respiratory Depression Ondansetron HCl (Zofran) 4 mg IVPUSH ONETIME ONE Stop: 02/27/20 10:18 Last Admin: 02/27/20 10:45 Dose: 4 mg Documented by: Ondansetron HCl (Zofran) 4 mg IVPUSH ONETIME PRN PRN Reason: Nausea/Vomiting Potassium Chloride (Klor-Con M20) 20 meq PO ONETIME ONE Stop: 02/27/20 11:36 Last Admin: 02/27/20 12:51 Dose: 20 meq Documented by: Potassium Chloride (Klor-Con M20) 40 meq PO ONETIME ONE Stop: 02/27/20 16:04 Last Admin: 02/27/20 16:53 Dose: 40 meq Documented by: Propofol (Diprivan 20 Ml) Confirm Administered Dose 200 mg .ROUTE .STK-MED ONE Stop: 02/29/20 14:09 - Exam Wound/Incisions: Healing Well General: Alert, Oriented HEENT: Pupils Equal Neck: Supple Lungs: Clear to Auscultation, Normal Respiratory Effort Cardiovascular: Regular Rate, Regular Rhythm GI/Abdominal Exam: Normal Bowel Sounds, Soft, Non-Tender, No Organomegaly, No Distention, No Abnormal Bruit, No Mass, Pelvis Stable Extremities: Normal Inspection, Normal Range of Motion, Non-Tender, No Pedal Edema, Normal Capillary Refill Skin: Warm, Dry, Intact Neurological: No New Focal Deficit Psy/Mental Status: Alert, Normal Affect, Normal Mood Sepsis Event Note - Evaluation Sepsis Screening Result: No Definite Risk - Focused Exam Vital Signs: Vital Signs Temp Pulse Resp BP Pulse Ox 03/02/20 07:10 36.1 C 64 15 151/72 H 94 L 03/02/20 04:07 36.4 C 67 16 133/72 93 L 03/01/20 23:35 37.0 C 74 16 123/71 95 - Problem List Review Problem List Initiated/Reviewed/Updated: Yes - My Orders Last 24 Hours: Active Orders 24 hr Category Date Time Status VANCOMYCIN TROUGH [CHEM] Routine Lab 03/02/20 10:30 Ordered Potassium Chloride Med 03/01/20 09:00 Active 20 meq PO BID Medication Orders Acetaminophen (Tylenol) 650 mg PO Q4H PRN PRN Reason: Pain Last Admin: 03/01/20 04:42 Dose: 650 mg Documented by: Admin: 02/28/20 20:25 Dose: 650 mg Documented by: Admin: 02/28/20 10:35 Dose: 650 mg Documented by: FABRICIO Cosigned by: MARY Docusate Sodium (Colace) 200 mg PO DAILY [facility] Last Admin: 03/02/20 08:40 Dose: Not Given Documented by: Admin: 03/01/20 08:45 Dose: 200 mg Documented by: Admin: 02/29/20 08:41 Dose: 200 mg Documented by: Admin: 02/28/20 10:37 Dose: 200 mg Documented by: FABRICIO Cosigned by: [id number] Enoxaparin Sodium (Lovenox) 40 mg SUBCUT Q24H [facility] Last Admin: 03/01/20 16:23 Dose: 40 mg Documented by: Admin: 02/29/20 15:19 Dose: Not Given Documented by: Admin: 02/28/20 15:40 Dose: 40 mg Documented by: Admin: 02/27/20 16:52 Dose: 40 mg Documented by: DALE Piperacillin Sod/Tazobactam (Sod 3.375 gm/ Sodium Chloride) 100 mls @ 200 mls/hr IV Q6H [facility] Last Admin: 03/02/20 04:06 Dose: 200 mls/hr Documented by: Infusion: 03/01/20 22:54 Dose: 200 mls/hr Documented by: Admin: 03/01/20 22:24 Dose: 200 mls/hr Documented by: Infusion: 03/01/20 16:53 Dose: 200 mls/hr Documented by: Admin: 03/01/20 16:23 Dose: 200 mls/hr Documented by: Infusion: 03/01/20 11:00 Dose: 200 mls/hr Documented by: Admin: 03/01/20 10:30 Dose: 200 mls/hr Documented by: Infusion: 03/01/20 05:14 Dose: 200 mls/hr Documented by: Admin: 03/01/20 04:44 Dose: 200 mls/hr Documented by: Infusion: 02/29/20 22:45 Dose: 200 mls/hr Documented by: Admin: 02/29/20 22:15 Dose: 200 mls/hr Documented by: Infusion: 02/29/20 15:49 Dose: 200 mls/hr Documented by: Admin: 02/29/20 15:19 Dose: 200 mls/hr Documented by: Infusion: 02/29/20 10:56 Dose: 200 mls/hr Documented by: Admin: 02/29/20 10:26 Dose: 200 mls/hr Documented by: Infusion: 02/29/20 03:50 Dose: 200 mls/hr Documented by: Admin: 02/29/20 03:20 Dose: 200 mls/hr Documented by: Infusion: 02/28/20 22:50 Dose: 200 mls/hr Documented by: Admin: 02/28/20 22:20 Dose: 200 mls/hr Documented by: Infusion: 02/28/20 16:10 Dose: 200 mls/hr Documented by: Admin: 02/28/20 15:40 Dose: 200 mls/hr Documented by: Infusion: 02/28/20 10:33 Dose: 200 mls/hr Documented by: Admin: 02/28/20 10:03 Dose: 200 mls/hr Documented by: Infusion: 02/28/20 04:11 Dose: 200 mls/hr Documented by: Admin: 02/28/20 03:41 Dose: 200 mls/hr Documented by: Infusion: 02/27/20 22:26 Dose: 200 mls/hr Documented by: Admin: 02/27/20 21:56 Dose: 200 mls/hr Documented by: Infusion: 02/27/20 17:23 Dose: 200 mls/hr Documented by: Admin: 02/27/20 16:53 Dose: 200 mls/hr Documented by: DALE Vancomycin HCl 1.25 gm/ Sodium (Chloride) 250 mls @ 250 mls/hr IV Q12H [facility] Last Admin: 03/01/20 23:34 Dose: 250 mls/hr Documented by: Infusion: 03/01/20 12:11 Dose: 250 mls/hr Documented by: Admin: 03/01/20 11:11 Dose: 250 mls/hr Documented by: Infusion: 03/01/20 00:30 Dose: 250 mls/hr Documented by: Admin: 02/29/20 23:30 Dose: 250 mls/hr Documented by: Infusion: 02/29/20 12:19 Dose: 250 mls/hr Documented by: Admin: 02/29/20 11:19 Dose: 250 mls/hr Documented by: ÁNGEL Morphine Sulfate (Morphine) 2 mg IVPUSH Q4H PRN PRN Reason: Pain Last Admin: 02/27/20 22:04 Dose: 2 mg Documented by: BUCK Ondansetron HCl (Zofran) 4 mg IVPUSH Q8H PRN PRN Reason: Nausea/Vomiting Last Admin: 02/27/20 17:27 Dose: 4 mg Documented by: DALE Potassium Chloride (Potassium Chloride) 20 meq PO BID [facility] Last Admin: 03/02/20 08:38 Dose: 20 meq Documented by: JORDON Cosigned by: MARY Admin: 03/01/20 21:18 Dose: 20 meq Documented by: Admin: 03/01/20 08:44 Dose: 20 meq Documented by: EVITA - Assessment Assessment (Free Text/Narrative):: Status post I&D of left labial abscess the incision looked good. The packing is removed the patient instructed to use sitz bath. An S4 is I'm concerned she can be discharged home today to be followed in the office if Okay the medical team
--- NOTE | 2020-03-02 17:52 | PCM.DCSUM1 ---
Discharge Summary - Hospital Course Free Text/Narrative:: 54-year-old female admitted for cellulitis of the right pubic area, right labia majora, right perianal area. Patient states she is having a hard time sitting and walking due to her pain. Patient states that her symptoms began roughly one week prior at which time she went to a walk-in clinic for treatment. Patient was prescribed Bactrim which she has take for 6 days with no improvement of her infection. Patient has also had nausea, vomiting, headaches and fatigue for the past week. Patient has also had very poor appetite and states that she hasn't had much to eat over the past week, leading to episodes of dizziness and lightheadedness. Patient does not have any known PMH or medication allergies. PHYSICAL CHEMIST consulted and I&D to drain abscess of the right labia was performed. Patients symptoms improved 24hrs post I&D. Patient reported less pain and darius lulitis had significantly reduced. 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 labial absess Consults: Consultations 02/27/20 13:56 Consult to Physician [CONS] Stat - Discharge Plan Home Medications: Home Meds Aspirin 81 mg PO DAILY 02/27/20 [History] Sulfamethoxazole/Trimethoprim [Bactrim Ds Tablet] 1 each PO BID 10 Days #20 03/02/20 [Rx] Patient Handouts: Sulfamethoxazole; Trimethoprim, SMX-TMP oral suspension, Cellulitis, Adult, [id number], Incision and Drainage, Care After Referrals: Chucho Preston MD [Physician] - 03/06/20 10:45 am - Discharge Summary/Plan Comment DC Time >30 min.: Yes - General Info Date of Service: 03/02/20 Subjective Update: Patient denies nausea, vomiting. States that her pain has decreased and she notices less redness in her suprapubic area. - Review of Systems General: Denies: Fever, Weakness, Chills Pulmonary: Denies: Shortness of Breath, Pleuritic Chest Pain, Cough Cardiovascular: Denies: Chest Pain, Palpitations, Dyspnea on Exertion Gastrointestinal: Denies: Abdominal Pain, Constipation, Decreased Appetite, Diarrhea, Nausea Genitourinary: Denies: Dysuria, Frequency, Burning - Patient Data Vitals - Most Recent: Last Vital Signs Temp 97.5 F 03/02/20 11:22 Pulse 72 03/02/20 11:22 Resp 16 03/02/20 11:22 BP 120/71 03/02/20 11:22 Pulse Ox 95 03/02/20 11:22 Weight - Most Recent: 178 lb 6.4 oz I&O - Last 24 hours: Intake & Output 03/02/20 03/02/20 03/02/20 06:59 14:59 22:59 Intake Total 500 Output Total 1300 Balance -800 Lab Results - Last 24 hrs: Laboratory Results - last 24 hr 03/02/20 03/02/20 03/02/20 Range/Units 05:25 05:25 10:50 WBC 6.74 (4.0-11.0) K/uL RBC 3.87 L (4.30-5.90) M/uL Hgb 10.9 L (12.0-16.0) g/dL Hct 34.7 L (36.0-46.0) % MCV 89.7 (80.0-98.0) fL MCH 28.2 (27.0-32.0) pg MCHC 31.4 (31.0-37.0) g/dL RDW Std Deviation 46.4 (28.0-62.0) fl RDW Coeff of John 14 (11.0-15.0) % Plt Count 252 (150-400) K/uL MPV 9.10 (7.40-12.00) fL Neut % (Auto) 72.6 (48.0-80.0) % Lymph % (Auto) 19.1 (16.0-40.0) % [place] % (Auto) 5.2 (0.0-15.0) % Eos % (Auto) 2.8 (0.0-7.0) % Baso % (Auto) 0.3 (0.0-1.5) % Neut # (Auto) 4.9 (1.4-5.7) K/uL Lymph # (Auto) 1.3 (0.6-2.4) K/uL [place] # (Auto) 0.4 (0.0-0.8) K/uL Eos # (Auto) 0.2 (0.0-0.7) K/uL Baso # (Auto) 0.0 (0.0-0.1) K/uL Nucleated RBC % 0.0 /100WBC Nucleated RBCs # 0 K/uL Sodium 142 (136-145) mmol/L Potassium 3.5 (3.5-5.1) mmol/L Chloride 106 (98-107) mmol/L Carbon Dioxide 26.0 (21.0-32.0) mmol/L BUN 5 L (7.0-18.0) mg/dL Creatinine 1.2 H (0.6-1.0) mg/dL Est Cr Clr Drug Dosing 49.00 mL/min Estimated GFR (MDRD) 46.5 ml/min Glucose 104 (74-106) mg/dL Calcium 8.5 (8.5-10.1) mg/dL Vancomycin Trough 19.1 H (5.0-10.0) ug/mL SOURAV Results - Last 24 hrs: Microbiology 02/27/20 09:50 Aerobic Blood Culture - Preliminary Blood - Venous - Lab Draw NO GROWTH AFTER 4 DAYS Anaerobic Blood Culture - Preliminary NO GROWTH AFTER 4 DAYS 02/27/20 10:35 Aerobic Blood Culture - Preliminary Blood - Venous NO GROWTH AFTER 4 DAYS Anaerobic Blood Culture - Preliminary NO GROWTH AFTER 4 DAYS 02/29/20 16:27 Gram Stain - Final Labia - Right Wound Culture - Final (Mrsa) Staphylococcus Aureus Med Orders - Current: Current Medications Discontinued Medications Acetaminophen (Tylenol) 650 mg PO Q4H PRN PRN Reason: Pain (Mild 1-3)/fever Acetaminophen (Tylenol) 650 mg PO Q4H PRN PRN Reason: Pain Last Admin: 03/01/20 04:42 Dose: 650 mg Documented by: Albuterol (Proventil Neb Soln) 2.5 mg NEB ONETIME PRN PRN Reason: Wheezing Atropine Sulfate (Atropine 0.1 Mg/Ml) 0.5 mg IVPUSH ASDIRECTED PRN PRN Reason: Hypo-perfusion Atropine Sulfate (Atropine 0.1 Mg/Ml) 1 mg IVPUSH ASDIRECTED PRN PRN Reason: Hypo-Perfusion Bupivacaine HCl (Sensorcaine-Mpf 0.25%) Confirm Administered Dose 10 ml .ROUTE .STK-MED ONE Stop: 02/29/20 15:43 Bupivacaine HCl (Sensorcaine-Mpf 0.5%) Confirm Administered Dose 10 ml .ROUTE .STK-MED ONE Stop: 02/29/20 15:43 Dextrose/Water (Dextrose 50% In Water) 50 ml IVPUSH ASDIRECTED PRN PRN Reason: Hypoglycemia Docusate Sodium (Colace) 200 mg PO DAILY [facility] Last Admin: 03/02/20 08:40 Dose: Not Given Documented by: Enoxaparin Sodium (Lovenox) 40 mg SUBCUT Q24H [facility] Last Admin: 03/01/20 16:23 Dose: 40 mg Documented by: Epinephrine HCl (Epinephrine 1:10,000) 1 mg IVPUSH ASDIRECTED PRN PRN Reason: ACLS Guidelines Fentanyl (Sublimaze) Confirm Administered Dose 100 mcg .ROUTE .STK-MED ONE Stop: 02/29/20 16:28 Fentanyl (Sublimaze) Confirm Administered Dose 100 mcg .ROUTE .STK-MED ONE Stop: 02/29/20 16:36 Fentanyl (Sublimaze) 50 mcg IVPUSH Q5M PRN PRN Reason: Pain Last Admin: 02/29/20 17:27 Dose: 50 mcg Documented by: Hydromorphone HCl (Dilaudid) 0.5 mg IVPUSH .Q5MIN PRN PRN Reason: Pain (severe 7-10) Sodium Chloride (Normal Saline) 1,000 mls @ 999 mls/hr IV BOLUS ONE Stop: 02/27/20 11:17 Last Admin: 02/27/20 10:43 Dose: 999 mls/hr Documented by: Vancomycin HCl 1.25 gm/ Sodium (Chloride) 250 mls @ 167 mls/hr IV ONETIME ONE Stop: 02/27/20 11:48 Last Admin: 02/27/20 10:42 Dose: Not Given Documented by: Vancomycin HCl 1.5 gm/ Sodium (Chloride) 500 mls @ 333 mls/hr IV NOW STA Stop: 02/27/20 11:50 Last Admin: 02/27/20 10:42 Dose: Not Given Documented by: Ampicillin Sodium/Sulbactam (Sodium 3 gm/ Sodium Chloride) 100 mls @ 200 mls/hr IV ONETIME ONE Stop: 02/27/20 10:54 Last Admin: 02/27/20 11:28 Dose: 200 mls/hr Documented by: Vancomycin HCl 1.5 gm/ Premix 300 mls @ 199.815 mls/hr IV NOW STA Stop: 02/27/20 11:59 Last Admin: 02/27/20 10:45 Dose: 199.815 mls/hr Documented by: Piperacillin Sod/Tazobactam (Sod 3.375 gm/ Sodium Chloride) 100 mls @ 200 mls/hr IV Q6H [facility] Last Admin: 03/02/20 10:22 Dose: 200 mls/hr Documented by: Vancomycin HCl 1 gm/ Sodium (Chloride) 250 mls @ 250 mls/hr IV Q12H [facility] Last Admin: 02/28/20 23:14 Dose: 250 mls/hr Documented by: Lactated Ringer's (Ringers, Lactated) 1,000 mls @ 125 mls/hr IV ASDIRECTED [facility] Last Admin: 03/01/20 04:29 Dose: 125 mls/hr Documented by: Vancomycin HCl 1.25 gm/ Sodium (Chloride) 250 mls @ 250 mls/hr IV Q12H [facility] Last Admin: 03/02/20 13:07 Dose: Not Given Documented by: Bupivacaine HCl/Epinephrine Bitart (Sensorc Mpf 0.25%-Epi 1:[id number]) Confirm Administered Dose 30 mls @ as directed .ROUTE .STK-MED ONE Stop: 02/29/20 15:43 Acetaminophen (Ofirmev) Confirm Administered Dose 100 mls @ as directed .ROUTE .STK-MED ONE Stop: 02/29/20 16:13 Vancomycin HCl 1.25 gm/ Sodium (Chloride) 250 mls @ 250 mls/hr IV Q24H [facility] Iopamidol (Isovue Multipack-370 (76%)) 100 ml IVPUSH ONETIME ONE Stop: 02/27/20 12:22 Last Admin: 02/27/20 12:22 Dose: 100 ml Documented by: Ketorolac Tromethamine (Toradol) Confirm Administered Dose 30 mg .ROUTE .STK-MED ONE Stop: 02/29/20 17:26 Last Admin: 03/01/20 19:44 Dose: Not Given Documented by: Lidocaine HCl (Xylocaine-Mpf 1%) Confirm Administered Dose 5 ml .ROUTE .STK-MED ONE Stop: 02/29/20 16:19 Midazolam HCl (Versed 1 Mg/Ml) Confirm Administered Dose 2 mg .ROUTE .STK-MED ONE Stop: 02/29/20 16:14 Morphine Sulfate (Morphine) 2 mg IVPUSH ONETIME ONE Stop: 02/27/20 10:21 Last Admin: 02/27/20 10:45 Dose: 2 mg Documented by: Morphine Sulfate (Morphine) 2 mg IVPUSH Q4H PRN PRN Reason: Pain Last Admin: 02/27/20 22:04 Dose: 2 mg Documented by: Naloxone HCl (Narcan) 0.1 mg IVPUSH ASDIRECTED PRN PRN Reason: Respiratory Depression Ondansetron HCl (Zofran) 4 mg IVPUSH ONETIME ONE Stop: 02/27/20 10:18 Last Admin: 02/27/20 10:45 Dose: 4 mg Documented by: Ondansetron HCl (Zofran) 4 mg IVPUSH Q8H PRN PRN Reason: Nausea/Vomiting Last Admin: 02/27/20 17:27 Dose: 4 mg Documented by: Ondansetron HCl (Zofran) 4 mg IVPUSH ONETIME PRN PRN Reason: Nausea/Vomiting Potassium Chloride (Klor-Con M20) 20 meq PO ONETIME ONE Stop: 02/27/20 11:36 Last Admin: 02/27/20 12:51 Dose: 20 meq Documented by: Potassium Chloride (Klor-Con M20) 40 meq PO ONETIME ONE Stop: 02/27/20 16:04 Last Admin: 02/27/20 16:53 Dose: 40 meq Documented by: Potassium Chloride (Potassium Chloride) 20 meq PO BID AVIS Last Admin: 03/02/20 08:38 Dose: 20 meq Documented by: Propofol (Diprivan 20 Ml) Confirm Administered Dose 200 mg .ROUTE .STK-MED ONE Stop: 02/29/20 14:09 - Exam General: Reports: Alert, Oriented Lungs: Reports: Clear to Auscultation, Normal Respiratory Effort Cardiovascular: Reports: Regular Rate, Regular Rhythm GI/Abdominal Exam: Normal Bowel Sounds, Soft, Non-Tender Wound/Incisions: Reports: Healing Well, Drainage, Erythema Improving
== END 2020-03-02 14:00 | disposition home or self-care (01) | DRG 364 ==
LOC: MW.ED 09:28 → MW.MS 13:47 → EEVIPCON 13:47
PROVIDERS: ADMIT Student in an Organized Health Care Education/Training Program; ATTEND Student in an Organized Health Care Education/Training Program
PROC: 0U9M0ZZ Drainage of Vulva, Open Approach (ICD-10-PCS; principal; 2020-02-29)
DX: L03.315 Cellulitis of perineum (principal); Z20.828 Contact with and (suspected) exposure to other viral communicable diseases; Z90.89 Acquired absence of other organs; Z90.49 Acquired absence of other specified parts of digestive tract; Z79.899 Other long term (current) drug therapy; Z79.82 Long term (current) use of aspirin; Z98.890 Other specified postprocedural states
CPT/HCPCS: 00940; 36415; 70450; 70450-26; 71045; 71045-26; 74177; 74177-26; 76705; 76705-26; 80048; 80053; 80202; 81003; 83036; 83605; 84484; 85025; 87040; 87070; 87075; 87077; 87186; 87205; 93005; 93010; 96365; 96366; 96368; 96375; 99221; 99232; 99238; 99283; 99285-25; A9270-GY; J0131; J0295; J1650; J2001; J2250; J2270; J2405; J2543; J2704; J3010; J3370; J3490; J7030; J7050; J7120; Q9967; U0002

== ENCOUNTER 2020-04-25 06:37 | Day surgery (SDC) | payer BC ==
[~2020-04-25 06:37] MED LIST: Lactated Ringers 1,000 ML IV SCH
[2020-04-25] MEDS ORDERED: fentaNYL 100 MCG/2 ML SDV ONE (07:06)
[2020-04-25] MEDS ORDERED: Propofol 200 MG/20 ML SDV ONE (07:06)
--- NOTE | 2020-04-25 07:13 | PCM.PREANE ---
Preanesthetic Assessment - Anesthesia/Transfusion/Family Hx Anesthesia History: Prior Anesthesia Reaction Other Type of Anesthesia Reaction Comment: low BP after BTL Family History of Anesthesia Reaction: No Transfusion History: Prior Transfusion Without Reaction Intubation History: Unknown - Review of Systems General: No Symptoms Pulmonary: No Symptoms Cardiovascular: No Symptoms Gastrointestinal: Abdominal Pain, Hematochezia, Other (family h/o colon cancer) Neurological: No Symptoms Other: Reports: None - Physical Assessment Vital Signs: Last Vital Signs Temp 36.5 C 04/25/20 06:42 Pulse 77 04/25/20 06:42 Resp 15 04/25/20 06:42 BP 136/77 04/25/20 06:42 Pulse Ox 96 04/25/20 06:42 Height: 5 ft 6 in Weight: 78.925 kg ASA Class: 2 Mental Status: Alert & Oriented x3 Airway Class: Mallampati = 2 Dentition: Reports: Normal Dentition Thyro-Mental Finger Breadths: 3 Mouth Opening Finger Breadths: 3 ROM/Head Extension: Full Lungs: Clear to Auscultation, Normal Respiratory Effort Cardiovascular: Regular Rate, Regular Rhythm - Allergies Allergies/Adverse Reactions: Allergies Allergy/AdvReac Type Severity Reaction Status Date / Time No Known Allergies Allergy Verified 04/23/20 08:35 - Blood Blood Available: No - Anesthesia Plan Pre-Op Medication Ordered: None - Acknowledgements Anesthesia Type Planned: MAC Pt an Appropriate Candidate for the Planned Anesthesia: Yes Alternatives and Risks of Anesthesia Discussed w Pt/Guardian: Yes Pt/Guardian Understands and Agrees with Anesthesia Plan: Yes PreAnesthesia Questionnaire HEENT History: Reports: None Other HEENT History: wears glasses Cardiovascular History: Reports: Hypertension (started treatment 2 days ago), Other (See Below) Respiratory History: Reports: None Gastrointestinal History: Reports: Other (See Below) Genitourinary History: Reports: None [employer] History: Reports: Endometrial Ablation, Musculoskeletal History: Reports: Fracture Other Musculoskeletal History: hx fx ankle & finger Neurological History: Reports: Vertigo Other Neuro History: syncope a week ago, small bruise on the left side of the face Psychiatric History: Reports: None Endocrine/Metabolic History: Reports: Hypothyroidism Hematologic History: Reports: None Immunologic History: Reports: None Other Immunologic History: states MRSA diagnosed Feb 2020 abcessed labia Oncologic (Cancer) History: Reports: None Dermatologic History: Reports: Cellulitis, Other (See Below) Other Dermatologic History: cellulitis right groin and kalin and rectal area - Infectious Disease History Infectious Disease History: Reports: Chicken Pox, Measles Other Infectious Disease History: states had chicken pox when a child and was diagnosed with MRSA 2019 (abcess labia) - Past Surgical History Female Surgical History: Reports: Cervical Conization, Endometrial Ablation, Tubal Ligation, Other (See Below) (episiotomy repair) Other Musculoskeletal Surgeries/Procedures:: ankle and finger fractured - SUBSTANCE USE Tobacco Use Status *Q: Never Tobacco User - HOME MEDS Home Medications: Home Meds Aspirin 81 mg PO DAILY 02/27/20 [History] Levothyroxine Sodium [Levothyroxine] 1 tab PO DAILY 04/19/20 [History] Multivit-Min/Folic Acid/Vit K1 [Multi For Her 50 Plus Softgel] 1 tab PO DAILY 04/19/20 [History] - CURRENT (IN HOUSE) MEDS Current Meds: Current Medications Lactated Ringer's (Ringers, Lactated) 1,000 mls @ 125 mls/hr IV ASDIRECTED [facility] Last Admin: 04/25/20 07:00 Dose: 125 mls/hr Documented by: Discontinued Medications Fentanyl (Sublimaze) Confirm Administered Dose 100 mcg .ROUTE .STK-MED ONE Stop: 04/25/20 07:07 Propofol (Diprivan 20 Ml) Confirm Administered Dose 400 mg .ROUTE .STK-MED ONE Stop: 04/25/20 07:07
[2020-04-25] MEDS ORDERED: Lidocaine 2% 5 ML SDV ONE (07:27)
--- NOTE | 2020-04-25 08:36 | PCM.OPNOTE ---
- General Post-Op/Procedure Note Date of Surgery/Procedure: 04/25/20 Operative Procedure(s): colonoscopy w biopsy Findings: see [id number] Pre Op Diagnosis: BRBPR Anesthesia Technique: Moderate Sedation Primary Surgeon: Karan Abad Pathology: 2mm sessile polypa and random colon bx for pain Complications: None Condition: Good
--- NOTE | 2020-04-25 08:38 | PCM.POSTAN ---
POST ANESTHESIA ASSESSMENT - MENTAL STATUS Mental Status: Alert, Oriented - VITAL SIGNS Vital Signs: Last Vital Signs Temp 36.5 C 04/25/20 06:42 Pulse 77 04/25/20 06:42 Resp 15 04/25/20 06:42 BP 136/77 04/25/20 06:42 Pulse Ox 96 04/25/20 06:42 - RESPIRATORY Respiratory Status: Respiratory Rate WNL, Airway Patent, O2 Saturation Stable - CARDIOVASCULAR CV Status: Pulse Rate WNL, Blood Pressure Stable - GASTROINTESTINAL GI Status: No Symptoms - PAIN Pain Score: 0 - POST OP HYDRATION Hydration Status: Adequate & Stable - OBSERVATIONS Free Text/Narrative:: No anesthesia problems
[2020-04-25] MEDS ORDERED: Midazolam 1 MG/ML 2 ML SDV ONE (08:55)
--- NOTE | 2020-04-25 09:08 | PCM48HPAN ---
Post Anesthesia Note - EVALUATION WITHIN 48HRS OF ANESTHETIC Vital Signs in Normal Range: Yes Patient Participated in Evaluation: Yes Respiratory Function Stable: Yes Airway Patent: Yes Cardiovascular Function Stable: Yes Hydration Status Stable: Yes Pain Control Satisfactory: Yes Nausea and Vomiting Control Satisfactory: Yes Mental Status Recovered: Yes Vital Signs: Last Vital Signs Temp 36.5 C 04/25/20 08:44 Pulse 77 04/25/20 08:44 Resp 14 04/25/20 08:44 BP 136/77 04/25/20 08:44 Pulse Ox 96 04/25/20 08:44 - COMMENTS/OBSERVATIONS Free Text/Narrative:: No anesthesia problems
--- NOTE | 2020-04-25 11:42 | OR ---
SURGEON: Karan Abad MD DATE OF PROCEDURE: 04/25/2020 PREOPERATIVE DIAGNOSES: Bright red blood per rectum and abdominal pain. POSTOPERATIVE DIAGNOSES: Bright red blood per rectum and abdominal pain. PROCEDURE PERFORMED: Colonoscopy with biopsy. PRIMARY SURGEON: Karan Abad MD COMPLICATIONS: None. DESCRIPTION OF PROCEDURE: The patient was taken to the endoscopy room. A time out was called, patient identified, and procedure identified. Diprivan was then administrated. Patient went from awake to sleep, hearing doctor talking or door closing is normal. Perineum inspection and digital examination were then performed. A well- lubricated colonoscope was gently inserted through the rectum, advanced past the rectosigmoid junction, the descending colon, splenic flexure, transverse colon, hepatic flexure, ascending colon, arrived to the cecum. Cecum was identified as dictated in the finding. Then the scope was carefully withdrawn while attention was paid to the mucosal surface for any abnormality. Air will be sucked out during the scope withdrawal. At the rectum, retroflexed to examine any rectal diseases, fistula or hemorrhoids. During mucosal examination, abnormality or polyp was noted; picture taken and biopsy performed. Also random bx for hx of colitis; Patient tolerated procedure well. There were no intraoperative complications, and Dr. Abad was present throughout the whole procedure. FINDINGS: 1. The patient is easily sedated with END FRAZER and Diprivan, the patient is soundly snoring. 2. Bowel prep is average with a couple of stool ball and no semi-formed stool and some liquid stool. 3. Colon is rather straightforward. Cecum indicated by ileocecal fold, one-to- one indentation, appendiceal orifice. ScopeGuide is not functioning at this time. Mucosa examined upon scope pulling out, and the patient has mild diverticulosis, very very mild, just a couple of them at the left colon. No signs or symptoms of diverticulitis, and one small polyp at distance 20 cm when scope go in was removed with cold biopsy forceps, 2 mm sessile polyp. No inflammation, stricture, ulceration, AV malformation, bleeding, or other growth. The patient has external hemorrhoids and questionable healing fissure and anal tag. The patient would benefit from repeat colonoscopy depending on the polyp pathology. CHARITY / NASEEM /[id number] RICHARD
== END 2020-04-25 09:20 | disposition home or self-care (01) ==
LOC: MW.SDS 06:37
PROVIDERS: ATTEND Surgery
DX: D12.6 Benign neoplasm of colon, unspecified (principal); K57.31 Diverticulosis of large intestine without perforation or abscess with bleeding; I10 Essential (primary) hypertension; E03.9 Hypothyroidism, unspecified; K80.20 Calculus of gallbladder without cholecystitis without obstruction; Z79.82 Long term (current) use of aspirin; Z98.890 Other specified postprocedural states; Z79.890 Hormone replacement therapy
CPT/HCPCS: 00812; 88305; J2001; J2250; J2704; J3010; J7120

== ENCOUNTER 2020-04-27 06:37 | Day surgery (SDC) | payer BC ==
[~2020-04-27 06:37] MED LIST changes: +ceFAZolin 2 GM in Premix Bag 1 BAG IV ONE
[2020-04-27] MEDS ORDERED: Propofol 200 MG/20 ML SDV ONE (06:48)
[2020-04-27] MEDS ORDERED: Midazolam 1 MG/ML 2 ML SDV ONE (06:48)
[2020-04-27] MEDS ORDERED: Ketorolac 30 MG/ML SDV ONE (06:49)
[2020-04-27] MEDS ORDERED: Glycopyrrolate 0.2 MG/ML SDV ONE ×2 (06:49→06:50)
[2020-04-27] MEDS ORDERED: Ondansetron 4 MG/2 ML SDV ONE (06:49)
[2020-04-27] MEDS ORDERED: fentaNYL 250 MCG/5 ML SDV ONE (06:49)
[2020-04-27] MEDS ORDERED: Rocuronium Bromide 50 MG/5 ML Syringe ONE (06:49)
[2020-04-27] MEDS ORDERED: Dexamethasone 4 MG/ML 5 ML MDV ONE (06:49)
[2020-04-27] MEDS ORDERED: Lidocaine 2% 5 ML SDV ONE (06:49)
[2020-04-27] MEDS ORDERED: ceFAZolin 1 GM Vial ONE (06:56)
[2020-04-27] MEDS ORDERED: Sodium Chloride 0.9% 20 ML ONE (06:56)
[2020-04-27] MEDS ORDERED: Scopolamine 1.5 MG Transdermal Patch TRDERM PRN (07:06)
--- NOTE | 2020-04-27 07:09 | PCM.PREANE ---
Preanesthetic Assessment - Anesthesia/Transfusion/Family Hx Anesthesia History: Prior Anesthesia Reaction Other Type of Anesthesia Reaction Comment: low BP after BTL Family History of Anesthesia Reaction: No Transfusion History: Prior Transfusion Without Reaction Intubation History: Unknown - Review of Systems General: No Symptoms Pulmonary: No Symptoms Cardiovascular: No Symptoms Gastrointestinal: No Symptoms Neurological: No Symptoms Other: Reports: None - Physical Assessment Vital Signs: Last Vital Signs Temp 36.2 C 04/27/20 06:52 Pulse 78 04/27/20 06:52 Resp 14 04/27/20 06:52 BP 132/78 04/27/20 06:52 Pulse Ox 96 04/27/20 06:52 Height: 5 ft 6 in Weight: 78.925 kg ASA Class: 2 Mental Status: Alert & Oriented x3 Airway Class: Mallampati = 2 Dentition: Reports: Normal Dentition Thyro-Mental Finger Breadths: 3 Mouth Opening Finger Breadths: 2 (small mouth) ROM/Head Extension: Full Lungs: Clear to Auscultation, Normal Respiratory Effort Cardiovascular: Regular Rate, Regular Rhythm - Allergies Allergies/Adverse Reactions: Allergies Allergy/AdvReac Type Severity Reaction Status Date / Time No Known Allergies Allergy Verified 04/23/20 08:35 - Blood Blood Available: No - Anesthesia Plan Pre-Op Medication Ordered: None - Acknowledgements Anesthesia Type Planned: General Anesthesia Pt an Appropriate Candidate for the Planned Anesthesia: Yes Alternatives and Risks of Anesthesia Discussed w Pt/Guardian: Yes Pt/Guardian Understands and Agrees with Anesthesia Plan: Yes PreAnesthesia Questionnaire HEENT History: Reports: None Other HEENT History: wears glasses Cardiovascular History: Reports: Hypertension, Other (See Below) Other Cardiovascular History: borderline HTN Respiratory History: Reports: None Gastrointestinal History: Reports: Other (See Below) Other Gastrointestinal History: gallstones Genitourinary History: Reports: None [employer] History: Reports: Endometrial Ablation, Musculoskeletal History: Reports: Fracture Other Musculoskeletal History: hx fx ankle & finger Neurological History: Reports: Vertigo Other Neuro History: syncope a week ago, small bruise on the left side of the face Psychiatric History: Reports: None Endocrine/Metabolic History: Reports: Hypothyroidism Hematologic History: Reports: None Immunologic History: Reports: None Other Immunologic History: states MRSA diagnosed Feb 2020 abcessed labia Oncologic (Cancer) History: Reports: None Dermatologic History: Reports: Cellulitis, Other (See Below) Other Dermatologic History: cellulitis right groin and kalin and rectal area - Infectious Disease History Infectious Disease History: Reports: Chicken Pox, Measles Other Infectious Disease History: states had chicken pox when a child and was diagnosed with MRSA 2019 (abcess labia) - Past Surgical History Head Surgeries/Procedures: Reports: None HEENT Surgical History: Reports: Adenoidectomy, Tonsillectomy Cardiovascular Surgical History: Reports: None Respiratory Surgical History: Reports: None GI Surgical History: Reports: Colonoscopy Other GI Surgeries/Procedures: colonoscopy 04/25/20 Female Surgical History: Reports: Cervical Conization, Endometrial Ablation, Tubal Ligation, Other (See Below) Other Female Surgeries/Procedures: I&D abscess on labia Feb 2020 (which was MRSA) Endocrine Surgical History: Reports: None Neurological Surgical History: Reports: None Musculoskeletal Surgical History: Reports: Other (See Below) Other Musculoskeletal Surgeries/Procedures:: ankle and finger fractured Oncologic Surgical History: Reports: None Dermatological Surgical History: Reports: None - SUBSTANCE USE Tobacco Use Status *Q: Never Tobacco User - HOME MEDS Home Medications: Home Meds Aspirin 81 mg PO DAILY 02/27/20 [History] Levothyroxine Sodium [Levothyroxine] 1 tab PO DAILY 04/19/20 [History] Multivit-Min/Folic Acid/Vit K1 [Multi For Her 50 Plus Softgel] 1 tab PO DAILY 04/19/20 [History] - CURRENT (IN HOUSE) MEDS Current Meds: Current Medications Lactated Ringer's (Ringers, Lactated) 1,000 mls @ 125 mls/hr IV ASDIRECTED [facility] Last Admin: 04/27/20 07:06 Dose: 125 mls/hr Documented by: Discontinued Medications Cefazolin Sodium (Ancef) Confirm Administered Dose 2 gm .ROUTE .STK-MED ONE Stop: 04/27/20 06:57 Dexamethasone (Dexamethasone) Confirm Administered Dose 20 mg .ROUTE .STK-MED ONE Stop: 04/27/20 06:50 Fentanyl (Sublimaze) Confirm Administered Dose 250 mcg .ROUTE .STK-MED ONE Stop: 04/27/20 06:50 Glycopyrrolate (Robinul) Confirm Administered Dose 0.2 mg .ROUTE .STK-MED ONE Stop: 04/27/20 06:50 Glycopyrrolate (Robinul) Confirm Administered Dose 0.2 mg .ROUTE .STK-MED ONE Stop: 04/27/20 06:51 Cefazolin Sodium/Dextrose 2 gm (/ Premix) 50 mls @ 100 mls/hr IV ONETIME ONE Stop: 04/27/20 05:29 Sodium Chloride (Normal Saline) Confirm Administered Dose 20 mls @ as directed .ROUTE .STK-MED ONE Stop: 04/27/20 06:57 Ketorolac Tromethamine (Toradol) Confirm Administered Dose 30 mg .ROUTE .STK-MED ONE Stop: 04/27/20 06:50 Lidocaine (Xylocaine-Mpf 2%) Confirm Administered Dose 5 ml .ROUTE .STK-MED ONE Stop: 04/27/20 06:50 Midazolam HCl (Versed 1 Mg/Ml) Confirm Administered Dose 2 mg .ROUTE .STK-MED ONE Stop: 04/27/20 06:49 Ondansetron HCl (Zofran) Confirm Administered Dose 4 mg .ROUTE .STK-MED ONE Stop: 04/27/20 06:50 Propofol (Diprivan 20 Ml) Confirm Administered Dose 200 mg .ROUTE .STK-MED ONE Stop: 04/27/20 06:49 Rocuronium [place] (Rocuronium [place]) Confirm Administered Dose 50 mg .ROUTE .STK-MED ONE Stop: 04/27/20 06:50
[2020-04-27] MEDS ORDERED: Scopolamine 1.5 MG Transdermal Patch ONE (07:12)
[2020-04-27] MEDS ORDERED: Bupivacaine 25%/EPINEPHrine/PF 30 ML ONE (07:21)
[2020-04-27] MEDS ORDERED: ePHEDrine 50 MG/ML SDV ONE (08:11)
[2020-04-27] MEDS ORDERED: Labetalol 100 MG/20 ML MDV ONE (08:19)
[2020-04-27] MEDS ORDERED: Octyl 2-Cyanoacrylate 1 Tube ONE (08:23)
[2020-04-27] MEDS ORDERED: hydrALAZINE 20 MG/ML SDV ONE (08:24)
[2020-04-27] MEDS ORDERED: HYDROmorphone 2 MG/ML Syringe ONE (08:49)
[2020-04-27] MEDS ORDERED: fentaNYL 100 MCG/2 ML SDV ONE (09:05)
--- NOTE | 2020-04-27 10:02 | PCM.OPNOTE ---
- General Post-Op/Procedure Note Date of Surgery/Procedure: 04/27/20 Operative Procedure(s): lap miguel w surgicell placement Findings: gb was yellow and green and completely engulfed w omentum cw acute and chronic cholecystitis, gallstones, too numerous to count. wall is not thickened; [id number] Pre Op Diagnosis: acute and chronic cholecystitis Post-Op Diagnosis: Same Anesthesia Technique: General ET Tube Primary Surgeon: Karan Abad Pathology: sent Complications: None Condition: Good
--- NOTE | 2020-04-27 10:32 | PCM.POSTAN ---
POST ANESTHESIA ASSESSMENT - MENTAL STATUS Mental Status: Alert, Oriented - VITAL SIGNS Vital Signs: Last Vital Signs Temp 36.2 C 04/27/20 09:31 Pulse 79 04/27/20 10:18 Resp 10 L 04/27/20 10:18 BP 116/70 04/27/20 10:18 Pulse Ox 94 L 04/27/20 10:18 - RESPIRATORY Respiratory Status: Respiratory Rate WNL, Airway Patent, O2 Saturation Stable - CARDIOVASCULAR CV Status: Pulse Rate WNL, Blood Pressure Stable - GASTROINTESTINAL GI Status: No Symptoms - PAIN Pain Score: 0 - POST OP HYDRATION Hydration Status: Adequate & Stable - OBSERVATIONS Free Text/Narrative:: No anesthesia problems
--- NOTE | 2020-04-27 11:37 | OR ---
SURGEON: Karna Abad MD DATE OF PROCEDURE: 04/27/2020 PREOPERATIVE DIAGNOSIS: Acute on chronic cholecystitis. POSTOPERATIVE DIAGNOSIS: Acute on chronic cholecystitis. PROCEDURE PERFORMED: Laparoscopic cholecystectomy with Surgicel placement. PRIMARY SURGEON: Karan Abad MD COMPLICATIONS: None. FINDING: Gallbladder was yellow and green and completely engulfed with omentum consistent with acute on chronic cholecystitis. Wall was not thickened. Gallstones, too- [id number]. PROCEDURE NOTE: The patient was taken to the operating room and placed in the supine position. After the intubation of general endotracheal anesthesia, the patient's abdomen was prepped and draped in the usual sterile fashion. Using Farmetoview, a 12 mm trocar was placed supraumbilically and then followed with pneumoperitoneum. A 5 mm trocar was placed in the epigastrium and two 5 mm trocars placed in the right upper quadrant. The placement of the last three trocars was done under direct video supervision. Upon gaining entrance to the abdominal cavity, an extensive examination was then performed. The gallbladder was located and identified and retracted to the dome of the liver at the triangle of Calot. The cystic duct was clipped three more times and then using the endoscopic clip, was transected with placement of the endoscopic clip and transection was performed with care, ensuring the posterior prong of the instruments were clearly visualized prior to exercising the procedure. The gallbladder was dissected using electrocautery out of the liver bed and then removed using endoscopic bag through the umbilical site. The gallbladder was removed en bloc and there was no bile spillage and this was then followed with extensive irrigation until the bile was clear from blood and bile. After the gallbladder was removed and good hemostasis achieved, a piece of Surgicel was inserted into the gallbladder bed. Intraoperative finding as dictated above. The trocars were then removed under direct video supervision. The 12 mm umbilical site was then closed with deep stitches using 0 Vicryl followed with proximal stitches using 3-0 Vicryl and Dermabond. The other three trocar sites were closed with 3-0 Vicryl followed with approximation of skin with Dermabond. The patient was then awakened and extubated and transferred to the recovery room in hemodynamically stable condition. At the conclusion of the surgery, before closing the abdominal wound, instrument count and sponge count were done and were correct. The patient tolerated the procedure well and there were no intraoperative complications. Dr. Abad was present through the whole procedure. Just before surgery, a timeout was called. The patient was identified and procedure identified and procedure started. Thank you for the kind referral. CHARITY GUSMAN /[id number]
--- NOTE | 2020-04-27 12:54 | PCM48HPAN ---
Post Anesthesia Note - EVALUATION WITHIN 48HRS OF ANESTHETIC Vital Signs in Normal Range: Yes Patient Participated in Evaluation: Yes Respiratory Function Stable: Yes Airway Patent: Yes Cardiovascular Function Stable: Yes Hydration Status Stable: Yes Pain Control Satisfactory: Yes Nausea and Vomiting Control Satisfactory: Yes Mental Status Recovered: Yes Vital Signs: Last Vital Signs Temp 36.4 C 04/27/20 10:20 Pulse 67 04/27/20 11:35 Resp 16 04/27/20 11:35 BP 133/67 04/27/20 11:35 Pulse Ox 97 04/27/20 11:35 - COMMENTS/OBSERVATIONS Free Text/Narrative:: No anesthesia problems
== END 2020-04-27 13:24 | disposition home or self-care (01) ==
LOC: MW.SDS 06:37
PROVIDERS: ATTEND Surgery
DX: K80.12 Calculus of gallbladder with acute and chronic cholecystitis without obstruction (principal); I10 Essential (primary) hypertension; E03.9 Hypothyroidism, unspecified; Z79.82 Long term (current) use of aspirin; Z98.890 Other specified postprocedural states; Z79.890 Hormone replacement therapy
CPT/HCPCS: 47562; 81025; A9270; J0360; J0690; J1100; J1170; J1885; J2001; J2250; J2405; J2704; J3010; J3490; J7120; 88304